=== PATIENT | male | born 1955 | race Caucasian/White ===

== ENCOUNTER 2019-04-14 07:52 | Inpatient (IN) | payer BC, OTHER ==
[2019-04-14 10:18] LABS: Absolute Lymphocytes (CBC) 0.8 K/uL (0.7-4.9); Basophils % 0.4 % (0-1.3); Hematocrit 45.2 % (39.6-49.0); Lymphocytes % 7.4 % (15.3-44.8); MPV 7.8 fL (7.6-11.3); RBC Red Blood Cell Count 5.19 M/uL (4.33-5.43)
[2019-04-14] MEDS ORDERED: NA CHLORIDE 0.9% 1,000 ML ONE (10:18)
[2019-04-14] MEDS ORDERED: PIPER/TAZO/NS 3.375gm 3.375 GM/100 ML BAG ONE (10:18)
[2019-04-14 10:27] LABS: Protime INR 1.11
[2019-04-14] MEDS ORDERED: VANCOMYCIN 1.5 GM in NA CHLORIDE 0.9% 500 ML IVPB ONE (10:30)
[2019-04-14 10:45] LABS: ALT/SGPT 30 U/L (12-78); AST/SGOT 19 U/L (15-37); Albumin 3.5 g/dL (3.4-5.0); Alkaline Phosphatase 134 U/L (45-117); BUN Blood Urea Nitrogen 17 mg/dL (7-18); Bicarbonate 29 mmol/L (21-32); Bilirubin Direct 0.3 mg/dL (0-0.2); Bilirubin Total 1.1 mg/dL (0.2-1.0); Glucose Level 99 mg/dL (74-106); NT PRO-BNP 179 pg/mL (<125); Potassium 3.9 mmol/L (3.5-5.1); Protein, Total 8.1 g/dL (6.4-8.2); Sodium Level 138 mmol/L (136-145)
--- NOTE | 2019-04-14 11:16 | EKG ---
Test Date: 2019-04-14 Test Time: 10:19:08 Application Support Intern: SANDEEP MEASUREMENT RESULTS: Intervals: Rate: 95 OR: 162 QRSD: 90 QT: 368 QTc: 462 [place]: P: 54 OR: 162 QRS: 63 T: 41 INTERPRETIVE STATEMENTS: Normal sinus rhythm Normal ECG No previous ECG available for comparison Electronically Signed On 04-14-19 11:15:50 CABLE OPERATOR by Rajesh Whitlock
--- NOTE | 2019-04-14 11:38 | RAD REPORT ---
EXAM DESCRIPTION: RAD - Chest Single View - 04/14/2019 10:36 am CLINICAL HISTORY: pre op, right toe surgery, diabetes COMPARISON: No comparisons TECHNIQUE: AP portable chest image was obtained 04/14/2019 10:36 am . FINDINGS: Lungs are underinflated but otherwise clear. Body habitus and shallow inspiration accentua te lung markings. Heart and vasculature are normal. No measurable pleural effusion and no pneumothora x. No acute bony abnormality seen. No acute aortic findings suspected. IMPRESSION: No acute cardiopulmonary process.
--- NOTE | 2019-04-14 11:47 | RAD REPORT ---
EXAM DESCRIPTION: RAD - Foot Right 3 View - 04/14/2019 10:45 am CLINICAL HISTORY: toe wound COMPARISON: No comparisons FINDINGS: No acute traumatic or pathologic fracture confirmed. No gross cortical disruption seen. Th ere is questionable area of lucency in the distal phalanx that could reflect early osteomyelitis. Soft tissues of the first toe are swollen. No air or foreign body seen. IP joint of the toe appears i ntact as does the MTP joint. IMPRESSION: Central lucency of the first distal phalanx present potentially osteomyelitis. No edita cortical disruption.
--- NOTE | 2019-04-14 11:59 | ER ---
Nurse's Notes [facility] Name: Vance Alfaro Age: 63 yrs Sex: Male : 1955 Arrival Date: 04/14/2019 Time: 08:01 Bed 20 Private MD: Michael Lee Diagnosis: Osteomyelitis, unspecified-right great toe Presentation: 04/14 08:12 Presenting complaint: Patient states: R toe infection x 4-5 days. Is getting worse. ss Denies fever. Transition of care: patient was not received from another setting of care. Onset of symptoms was April 09, 2019. Risk Assessment: Do you want to hurt yourself or someone else? Patient reports no desire to harm self or others. Initial Sepsis Screen: Does the patient have a suspected source of infection? Yes: Skin breakdown/wound. Initial Sepsis Screen: Does the patient meet any 2 criteria? HR > 90 bpm. Care prior to arrival: None. 08:12 Method Of Arrival: Ambulatory ss 08:12 Acuity: MIKAYLA 3 ss Historical: - Allergies: 08:13 No Known Allergies; ss - PMHx: 08:13 Diabetes - IDDM; Hypertension; Hypothyroidism; ss - PSHx: 08:13 L knee replacement; ss - Immunization history:: Adult Immunizations up to date. - Coronavirus screen:: The patient has NOT traveled to [place], [place], or [place] in the past 14 days. Proceed with normal triage process as indicated. - Social history:: Smoking status: Patient reports use of chewing tobacco. - Ebola Screening: : Patient denies exposure to infectious person Patient denies travel to an Ebola-affected area in the 21 days before illness onset. Screenin:45 Abuse screen: Denies threats or abuse. Nutritional screening: No deficits noted. rb1 Tuberculosis screening: No symptoms or risk factors identified. Fall Risk None identified. Assessment: 09:45 General: Appears in no apparent distress. comfortable, Behavior is calm, cooperative. rb1 Neuro: Level of Consciousness is awake, alert, obeys commands, Oriented to person, place, time, situation. Cardiovascular: Capillary refill < 3 seconds is brisk in bilateral fingers. Respiratory: Airway is patent Respiratory effort is even, unlabored, Respiratory pattern is regular, symmetrical. GI: No signs and/or symptoms were reported involving the gastrointestinal system. : No signs and/or symptoms were reported regarding the genitourinary system. Derm: Skin is pink, warm \T\ dry. 09:45 Pain: Denies pain. rb1 09:45 Derm: infection noted to the right great toe, skin has come of the side of the right rb1 toe. Toe is swollen and red. 10:19 Reassessment: Sent fax for Vancomycin 1.5 grams IVPB. rb1 10:44 Reassessment: Patient appears in no apparent distress at this time. No changes from rb1 previously documented assessment. Family at the bedside. 11:43 Reassessment: Patient appears in no apparent distress at this time. Patient and/or rb1 family updated on plan of care and expected duration. Pain level reassessed. Patient is alert, oriented x 3, equal unlabored respirations, skin warm/dry/pink. 12:42 Reassessment: Patient appears in no apparent distress at this time. No changes from rb1 previously documented assessment. family at the bedside. 13:40 Reassessment: Patient appears in no apparent distress at this time. Patient and/or rb1 family updated on plan of care and expected duration. Pain level reassessed. Patient is alert, oriented x 3, equal unlabored respirations, skin warm/dry/pink. Pt. ambulated to the restroom without difficulty. Family at the bedside. 14:15 Reassessment: Patient appears in no apparent distress at this time. Patient and/or rb1 family updated on plan of care and expected duration. Pain level reassessed. Patient is alert, oriented x 3, equal unlabored respirations, skin warm/dry/pink. Patient denies pain at this time. 15:15 Reassessment: Patient appears in no apparent distress at this time. No changes from rb1 previously documented assessment. Family at the bedside. 16:00 Reassessment: Patient appears in no apparent distress at this time. Patient and/or rb1 family updated on plan of care and expected duration. Pain level reassessed. Patient is alert, oriented x 3, equal unlabored respirations, skin warm/dry/pink. Family remains at the bedside. Patient denies pain at this time. 17:00 Reassessment: Patient appears in no apparent distress at this time. No changes from rb1 previously documented assessment. Vital Signs: 08:13 BP 140 / 87; Pulse 96; Resp 18; Temp 98.9(O); Pulse Ox 99% on R/A; Weight 122.47 kg; Height 6 ft. 3 in. (190.50 cm); Pain 0/10; 11:00 BP 149 / 97; Pulse 94; Resp 16; Pulse Ox 98% on R/A; rb1 12:00 BP 131 / 80; Pulse 91; Resp 12; Pulse Ox 99% on R/A; rb1 13:00 BP 117 / 98; Pulse 98; Resp 18; Pulse Ox 98% on R/A; rb1 14:00 BP 146 / 92; Pulse 95; Resp 20; Pulse Ox 99% ; rb1 15:00 BP 132 / 85; Pulse 87; Resp 17; Pulse Ox 98% on R/A; tw2 16:00 BP 147 / 92; Pulse 88; Resp 22; Pulse Ox 97% on R/A; Pain 0/10; rb1 17:00 BP 144 / 78; Pulse 91; Resp 26; Pulse Ox 99% ; Pain 0/10; rb1 08:13 Body Mass Index 33.75 (122.47 kg, 190.50 cm) ED Course: 08:01 Patient arrived in ED. ag5 08:01 Michael Lee MD is Private Physician. ag5 08:13 Triage completed. ss 08:13 Arm band placed on right wrist. ss 09:41 Sol Le[facility] FNP-C [facility]. snw 09:41 Dada Cook MD is Attending Physician. snw 09:45 Patient has correct armband on for positive identification. Bed in low position. Call rb1 light in reach. Side rails up X 1. panel monitor on. Pulse ox on. NIBP on. 10:05 Initial lab(s) drawn, by me, sent to lab. First set of blood cultures drawn. Inserted em1 saline lock: 22 gauge in right forearm, using aseptic technique. Blood collected. Missed attempt(s): 20 gauge in right forearm. Bleeding controlled, band aid applied, catheter tip intact. 10:35 Second set of blood cultures drawn by me. rb1 10:35 Inserted saline lock: 22 gauge in left antecubital area, using aseptic technique. Blood rb1 collected. 10:37 XRAY Chest (1 view) In Process Unspecified. EDMS 10:45 Wound Culture Sent. rb1 10:46 Foot Right 3 View XRAY In Process Unspecified. EDMS 10:49 EKG done, by cath lab radiological technologist. reviewed by Sol SALTER. at1 10:57 Venecia Perdomo, RN is Primary Nurse. rb1 11:58 Balta Gordon is Hospitalizing Provider. snw 20:00 No provider procedures requiring assistance completed. Patient admitted, IV remains in place. Administered Medications: 10:40 Drug: Zosyn 3.375 grams Route: IVPB; Infused Over: 60 mins; Site: right forearm; rb1 11:43 Follow up: Response: No adverse reaction; IV Status: Completed infusion [facility] 10:40 Drug: NS 0.9% 1000 ml Route: IV; Rate: 125 ml/hr; Site: right forearm; rb1 20:19 Follow up: Response: No adverse reaction; IV Status: Completed infusion 11:10 Drug: vancoMYCIN 1.5 grams Route: IVPB; Rate: calculated rate; Site: left antecubital; rb1 13:22 Follow up: IV Status: Completed infusion rb1 Output: 13:40 Urine: 1ml (Voided); Total: 1ml. rb1 Outcome: 11:59 Decision to Hospitalize by Provider. snw 20:33 Admitted to Tele accompanied by tech, family with patient, via wheelchair, room 423, with chart, Report called to Radha Diaz RN 20:33 Condition: stable 20:33 Instructed on the need for admit. 20:47 Patient left the ED. Signatures: Dispatcher [employer] EDMS Sol Leija FNP-C CORN MILLER-Csnw Hebert Sargent em1 Andreia Smith RN RN Astrid Duenas, automotive quality engineer EKG Tat1 Venecia Perdomo, RN RN rb1 Aubree Del Cid RN RN tw2 Joseph Mclaughlin Andres Mclain ag5 Corrections: (The following items were deleted from the chart) 10:43 09:45 General: Appears in no apparent distress. comfortable, Behavior is calm, rb1 cooperative, Reports fever for off and on for 3-4 months. rb1 10:43 09:45 Pain: Complains of pain in right lower quadrant Pain currently is 8 out of 10 on rb1 a pain scale. Pain began 3-4 months rb1 10:43 09:45 GI: Reports diarrhea, rb1 rb1 10:44 10:35 Second set of blood cultures drawn rb1 rb1 20:34 20:33 Admitted to [facility]
--- NOTE | 2019-04-14 11:59 | EDPHYS ---
Physician Documentation [facility] Name: Vance Alfaro Age: 63 yrs Sex: Male : 1955 Arrival Date: 04/14/2019 Time: 08:01 Bed 20 Private MD: Michael Lee ED Physician Dada Cook HPI: 04/14 11:59 This 63 yrs old Male presents to ER via Ambulatory with complaints of snw Diabetic - Toe Infection. 11:59 Onset: The symptoms/episode began/occurred suddenly, 3 day(s) ago, and became worse and snw became persistent. Associated signs and symptoms: Pertinent positives: redness, swelling, skin peeled off right great toe today, pt states he had a plantar ulceration that has been healing well until a few days ago. The patient has not experienced similar symptoms in the past. It is unknown whether or not the patient has recently seen a physician. supposed to see Endocrinology on the 7th to reassess hypothyroid. Last TSH level was 10.. Historical: - Allergies: 08:13 No Known Allergies; ss - PMHx: 08:13 Diabetes - IDDM; Hypertension; Hypothyroidism; ss - PSHx: 08:13 L knee replacement; ss - Immunization history:: Adult Immunizations up to date. - Coronavirus screen:: The patient has NOT traveled to [place], [place], or [place] in the past 14 days. Proceed with normal triage process as indicated. - Social history:: Smoking status: Patient reports use of chewing tobacco. - Ebola Screening: : Patient denies exposure to infectious person Patient denies travel to an Ebola-affected area in the 21 days before illness onset. ROS: 10:55 Constitutional: Negative for fever, chills, and weight loss, Eyes: Negative for injury, snw pain, redness, and discharge, ENT: Negative for injury, pain, and discharge, Neck: Negative for injury, pain, and swelling, Cardiovascular: Negative for chest pain, palpitations, and edema, Respiratory: Negative for shortness of breath, cough, wheezing, and pleuritic chest pain, Abdomen/GI: Negative for abdominal pain, nausea, vomiting, diarrhea, and constipation, Back: Negative for injury and pain, : Negative for injury, bleeding, discharge, and swelling, MS/Extremity: Negative for injury and deformity, Neuro: Negative for headache, weakness, numbness, tingling, and seizure. 10:55 Skin: Positive for cellulitis, swelling, of the right first toe. Exam: 10:53 Constitutional: This is a well developed, well nourished patient who is awake, alert, snw and in no acute distress. Head/Face: Normocephalic, atraumatic. Eyes: Pupils equal round and reactive to light, extra-ocular motions intact. Lids and lashes normal. Conjunctiva and sclera are non-icteric and not injected. Cornea within normal limits. Periorbital areas with no swelling, redness, or edema. ENT: Nares patent. No nasal discharge, no septal abnormalities noted. Tympanic membranes are normal and external auditory canals are clear. Oropharynx with no redness, swelling, or masses, exudates, or evidence of obstruction, uvula midline. Mucous membranes moist. Neck: Trachea midline, no thyromegaly or masses palpated, and no cervical lymphadenopathy. Supple, full range of motion without nuchal rigidity, or vertebral point tenderness. No Meningismus. Chest/axilla: Normal chest wall appearance and motion. Nontender with no deformity. No lesions are appreciated. Cardiovascular: Regular rate and rhythm with a normal S1 and S2. No gallops, murmurs, or rubs. Normal PMI, no JVD. No pulse deficits. Respiratory: Lungs have equal breath sounds bilaterally, clear to auscultation and percussion. No rales, rhonchi or wheezes noted. No increased work of breathing, no retractions or nasal flaring. Abdomen/GI: Soft, non-tender, with normal bowel sounds. No distension or tympany. No guarding or rebound. No evidence of tenderness throughout. Back: No spinal tenderness. No costovertebral tenderness. Full range of motion. Neuro: Awake and alert, GCS 15, oriented to person, place, time, and situation. Cranial nerves II-XII grossly intact. Motor strength 5/5 in all extremities. Sensory grossly intact. Cerebellar exam normal. Normal gait. Psych: Awake, alert, with orientation to person, place and time. Behavior, mood, and affect are within normal limits. 10:53 Musculoskeletal/extremity: Extremities: grossly normal except: noted in the right great toe: erythema, swelling, ROM: no acute changes, Circulation is intact in all extremities. Sensation intact. 10:53 Skin: Appearance: Color: erythematous, Temperature: warm, swelling, noted on the plantar aspect of right first toe, right first toe and Right first toenail, that are marked. Vital Signs: 08:13 BP 140 / 87; Pulse 96; Resp 18; Temp 98.9(O); Pulse Ox 99% on R/A; Weight 122.47 kg; ss Height 6 ft. 3 in. (190.50 cm); Pain 0/10; 11:00 BP 149 / 97; Pulse 94; Resp 16; Pulse Ox 98% on R/A; rb1 12:00 BP 131 / 80; Pulse 91; Resp 12; Pulse Ox 99% on R/A; rb1 13:00 BP 117 / 98; Pulse 98; Resp 18; Pulse Ox 98% on R/A; rb1 14:00 BP 146 / 92; Pulse 95; Resp 20; Pulse Ox 99% ; rb1 15:00 BP 132 / 85; Pulse 87; Resp 17; Pulse Ox 98% on R/A; tw2 16:00 BP 147 / 92; Pulse 88; Resp 22; Pulse Ox 97% on R/A; Pain 0/10; rb1 17:00 BP 144 / 78; Pulse 91; Resp 26; Pulse Ox 99% ; Pain 0/10; rb1 08:13 Body Mass Index 33.75 (122.47 kg, 190.50 cm) ss MDM: 09:41 Patient medically screened. snw 11:57 Data reviewed: vital signs, nurses notes. Data interpreted: Pulse oximetry: on room air snw is 99 %. Interpretation: normal. Counseling: I had a detailed discussion with the patient and/or guardian regarding: the historical points, exam findings, and any diagnostic results supporting the discharge/admit diagnosis, the presence of at least one elevated blood pressure reading (>120/80) during this emergency department visit, lab results, radiology results, the need for further work-up and treatment in the hospital. Physician consultation: Balta Gordon was called at 11:58, was contacted at 11:58, regarding admission, to the telemetry unit. 04/14 09:48 Order name: Basic Metabolic Panel; Complete Time: 10:46 snw 04/14 09:48 Order name: CBC with Diff; Complete Time: 10:46 snw 04/14 09:48 Order name: LFT's; Complete Time: 10:46 04/14 09:48 Order name: Magnesium; Complete Time: 10:46 04/14 09:48 Order name: NT PRO-BNP; Complete Time: 10:46 04/14 09:48 Order name: PT-INR; Complete Time: 10:46 04/14 08:49 Order name: Foot Right 3 View XRAY; Complete Time: 11:49 04/14 09:48 Order name: XRAY Chest (1 view); Complete Time: 11:44 04/14 09:48 Order name: Blood Culture Adult (2) 04/14 09:48 Order name: Procalcitonin; Complete Time: 11:05 04/14 09:48 Order name: TSH; Complete Time: 10:46 04/14 09:48 Order name: Lactate; Complete Time: 10:46 04/14 09:48 Order name: Wound Culture 04/14 09:48 Order name: EKG; Complete Time: 09:49 04/14 09:48 Order name: Cardiac monitoring; Complete Time: 10:45 04/14 09:48 Order name: EKG - Nurse/Tech; Complete Time: 10:45 04/14 09:48 Order name: IV Saline Lock; Complete Time: 10:14 04/14 09:48 Order name: Labs collected and sent; Complete Time: 10:14 04/14 09:48 Order name: O2 Per Protocol; Complete Time: 10:45 04/14 09:48 Order name: O2 Sat Monitoring; Complete Time: 10:45 snw Administered Medications: 10:40 Drug: Zosyn 3.375 grams Route: IVPB; Infused Over: 60 mins; Site: right forearm; rb1 11:43 Follow up: Response: No adverse reaction; IV Status: Completed infusion rb1 10:40 Drug: NS 0.9% 1000 ml Route: IV; Rate: 125 ml/hr; Site: right forearm; rb1 20:19 Follow up: Response: No adverse reaction; IV Status: Completed infusion wh 11:10 Drug: vancoMYCIN 1.5 grams Route: IVPB; Rate: calculated rate; Site: left antecubital; rb1 13:22 Follow up: IV Status: Completed infusion rb1 Disposition: 04/15 07:02 Co-signature as Attending Physician, Dada Cook MD. rn Disposition: 04/14/19 11:59 Hospitalization ordered by Balta Gordon for Inpatient Admission. Preliminary diagnosis is Osteomyelitis, unspecified - right great toe. - Bed requested for Telemetry/MedSurg (Inpatient). - Status is Inpatient Admission. - Condition is Stable. - Problem is new. - Symptoms are unchanged. UTI on Admission? Yes Signatures: Dispatcher [employer] EDMS Sol Leija, MAXIMILIANO-C SWITCHBOARD MANAGER-Csnw Dada Cook MD MD rn Andreia Smith RN RN ss Venecia Perdomo RN RN [facility] Lissette, Winsy Mary Resendiz Autumn ar5 Corrections: (The following items were deleted from the chart) 04/14 15:27 11:59 Hospitalization Ordered by Balta Gordon for Inpatient Admission. Preliminary eb diagnosis is Osteomyelitis, unspecified - right great toe. Bed requested for Telemetry/MedSurg (Inpatient). Status is Inpatient Admission. Condition is Stable. Problem is new. Symptoms are unchanged. UTI on Admission? No. snw 19:07 08:49 Accucheck ordered. snw rb1 20:08 15:27 04/14/2019 11:59 Hospitalization Ordered by Balta Gordon for Inpatient [facility] Admission. Preliminary diagnosis is Osteomyelitis, unspecified - right great toe. Bed requested for [facility] ER HOLD. Status is Inpatient Admission. Condition is Stable. Problem is new. Symptoms are unchanged. UTI on Admission? No. eb 20:47 20:08 04/14/2019 11:59 Hospitalization Ordered by Balta Gordon for Inpatient Admission. Preliminary diagnosis is Osteomyelitis, unspecified - right great toe. Bed requested for Telemetry/MedSurg (Inpatient). Status is Inpatient Admission. Condition is Stable. Problem is new. Symptoms are unchanged. UTI on Admission? No. ar5
[2019-04-14] MEDS ORDERED: HYDROCODONE/APAP 5/325 MG TAB PO PRN (15:29)
--- NOTE | 2019-04-14 17:22 | P.HP ---
Certification for Inpatient Patient admitted to: Inpatient With expected LOS: >2 Midnights Practitioner: I am a practitioner with admitting privileges, knowledge of patient current condition, hospital course, and medical plan of care. Services: Services provided to patient in accordance with Admission requirements found in Title 42 Section 412.3 of the Code of Federal Regulations Patient History Date of Service: 04/14/19 Reason for admission: Infected right big toe wound History of Present Illness: 63-year-old morbidly obese gentleman with a history of diabetes mellitus type 2 and hypertension presented to the emergency department due to suspected right big toe infection. Patient reports he has chronic ulcer on the plantar aspect of the right big toe. He noted increased swelling of the big toe and more discharge from the ulcer. He was concerned about infection and therefore presented to the emergency department for evaluation. X-ray of the foot done in the emergency department suggested presence of osteomyelitis. Patient states his blood sugar has been under good control over the last couple of weeks with Tresiba and pre meal insulin. Patient is admitted for further management. Allergies No Known Allergies Allergy (Verified 04/14/19 22:16) Home Medications: Insulin Aspart (Niacinamide) [Fiasp 100 Unit/ml Flextouch] 8 units SQ TIDWM Levothyroxine [Synthroid*] 50 mcg PO [id number] 04/14/19 lisinopriL [Lisinopril] 1 tab PO DAILY 04/14/19 Insulin Degludec [Tresiba] 25 unit SQ DAILY 04/15/19 Amlodipine [Norvasc*] 10 mg PO DAILY #30 tab 04/20/19 levoFLOXacin [Levaquin*] 750 mg IV DAILY #42 bag 04/20/19 - Past Medical/Surgical History Diabetic: Yes -: DM type 2 -: Hypertension - Family History Father -: Diabetes Mother History Unknown: Yes -: Cancer Notes: colon Brother History Unknown: Yes -: Diabetes - Social History Smoking Status: Never smoker Alcohol use: Yes CD- Drugs: No Place of Residence: Home Review of Systems Other: General: No fever, no malaise, no unintentional weight loss. Eyes: No eye discharge, Respiratory: No cough, no shortness of breath. CVS: No chest pain, no palpitation, no lightheadedness. GI: No abdominal pain, no nausea no vomit, no constipation, no diarrhea. Genitourinary: No dysuria, no urinary frequency, no incontinence, no hematuria. Musculoskeletal: No joint pains, or joint swelling, no gait instability. Neurology: No headache, no asymmetric, weakness, no problem with swallowing. Except as documented, all other systems reviewed and negative. Physical Examination - Physical Exam General: Alert, In no apparent distress, Oriented x3, Obese HEENT: PERRLA, Mucous membr. moist/pink, Sclerae nonicteric Neck: Supple, JVD not distended Respiratory: Clear to auscultation bilaterally, Normal air movement Cardiovascular: No edema, Regular rate/rhythm, Normal S1 S2 Capillary refill: <2 Seconds Gastrointestinal: Normal bowel sounds, Soft and benign, No tenderness Musculoskeletal: Other (Right big is erythematosus and swollen. Chronic ulcer at the plantar aspect of the right big toe discharging serous fluid.) Neurological: Normal speech, Normal strength at 5/5 x4 extr - Studies Laboratory Data (last 24 hrs) 04/14/19 10:05: PT 13.0 H, INR 1.11 04/14/19 10:05: WBC 11.0 H, Hgb 15.5, Hct 45.2, Plt Count 348 04/14/19 10:05: Sodium 138, Potassium 3.9, BUN 17, Creatinine 0.83, Glucose 99, Magnesium 2.0, Total Bilirubin 1.1 H, AST 19, ALT 30, Alkaline Phosphatase 134 H Assessment and Plan - Problems (Diagnosis) (1) Diabetic foot ulcer Status: Acute Qualifiers: Diabetic foot ulcer location: toe Diabetes mellitus type: type 2 (2) Osteomyelitis Status: Acute (3) Hypertension Status: Acute (4) DM type 2 (diabetes mellitus, type 2) Status: Acute - Plan Admit to the general medical floor. Aggressive antibiotic therapy with IV vancomycin, cefepime and clindamycin. Consult general surgery Patient will need deep tissue wound culture Follow blood cultures. Long-acting insulin and insulin sliding scale for glucose management. Patient will need PICC line placement for prolonged IV antibiotic therapy. - Advance Directives Does patient have a Living Will: No Does patient have a Durable POA for Healthcare: No
[2019-04-14] MEDS ORDERED: INFLUENZA VACCINE (for 3y+) 0.5 ML DOSE IMVAC ONE (18:00)
[2019-04-14] MEDS ORDERED: ACETAMINOPHEN 500 MG TAB PO PRN (19:15)
[2019-04-14] MEDS ORDERED: D50W 25 GM/50 ML SYRINGE/VIAL IV PRN ×2 (19:15)
[2019-04-14] MEDS ORDERED: GLUCAGON 1 MG/VIAL IM PRN ×2 (19:15)
[2019-04-14] MEDS ORDERED: ONDANSETRON 4 MG/2 ML VIAL IV PRN (19:15)
[2019-04-14] MEDS: NA CHLORIDE 0.9% 1,000 ML IV SCH (19:15)
[2019-04-14] MEDS: CLINDAMYCIN INJ 600 MG in NA CHLORIDE 0.9% 50 ML IV SCH ×2 (19:15→23:00)
[2019-04-14] MEDS ORDERED: CLINDAMYCIN 600MG/D5W 600 MG/50 ML BAG IV ONE (20:06)
[2019-04-14] MEDS ORDERED: CEFEPIME 1 GM/VIAL IV SCH (21:00)
[2019-04-14] MEDS: INSULIN -REGULAR HUMAN 50 UNIT/0.5 ML ML SQ SCH (21:00)
[2019-04-14] MEDS: VANCOMYCIN 2 GM in NA CHLORIDE 0.9% 500 ML IVPB SCH (21:00)
[2019-04-14 21:21] VITALS: BMI 34.4
[2019-04-15] MEDS ORDERED: VANCOMYCIN 1 GM/VIAL ONE (00:13)
[2019-04-15] MEDS ORDERED: NA CHLORIDE 0.9% 500 ML ONE (00:13)
[2019-04-15 04:14] LABS: Absolute Lymphocytes (CBC) 1.4 K/uL (0.7-4.9); Basophils % 0.6 % (0-1.3); Hematocrit 37.9 % (39.6-49.0); Lymphocytes % 21.1 % (15.3-44.8); MPV 7.9 fL (7.6-11.3); RBC Red Blood Cell Count 4.28 M/uL (4.33-5.43)
[2019-04-15 04:27] LABS: BUN Blood Urea Nitrogen 13 mg/dL (7-18); Bicarbonate 28 mmol/L (21-32); Glucose Level 167 mg/dL (74-106); Phosphorus 3.1 mg/dL (2.5-4.9); Potassium 3.6 mmol/L (3.5-5.1); Sodium Level 142 mmol/L (136-145)
[2019-04-15 05:10] LABS: Blood Morphology Comment NOT SEEN (NOT SEEN); Platelet Estimate ADEQ
[2019-04-15] MEDS ORDERED: POTASSIUM CL SA 10 MEQ TAB PO ONE (06:23)
[2019-04-15] MEDS: ENOXAPARIN 40 MG/0.4 ML SQ SCH (08:15)
[2019-04-15] MEDS: INSULIN GLARGINE 100 UNITS/ML SQ SCH (08:16)
[2019-04-15] MEDS: INSULIN -REGULAR HUMAN 50 UNIT/0.5 ML ML SQ SCH ×4 (08:17→21:06)
[2019-04-15] MEDS: CEFEPIME/SWI 1gm 10 ML IV SCH ×2 (08:58→21:06)
[2019-04-15] MEDS: CLINDAMYCIN INJ 600 MG in NA CHLORIDE 0.9% 50 ML IV SCH ×2 (08:58→16:55)
[2019-04-15] MEDS: VANCOMYCIN 2 GM in NA CHLORIDE 0.9% 500 ML IVPB SCH ×2 (09:43→21:07)
[2019-04-15 11:27] LABS: Urine Appearance CLEAR; Urine Blood NEGATIVE (NEG); Urine Color DK YELLOW; Urine Glucose 1+ (NEG); Urine Protein TRACE (NEG); Urine Specific Gravity >=1.030 (1.005-1.030)
[2019-04-15 11:36] LABS: Urine Microscopic Reflex ORDER UMIC
[2019-04-15] MEDS ORDERED: propofoL 200 MG/20 ML VIAL IV ONE (12:14)
[2019-04-15] MEDS ORDERED: FENTANYL CITR 100 MCG/2 ML ONE (12:14)
[2019-04-15 12:34] LABS: Urine Bacteria <20 /HPF (NONE SEEN); Urine Bilirubin 1+/R (NEG); Urine Culture Reflex Order REFLEXED; Urine RBC <5 /HPF (NONE SEEN)
--- NOTE | 2019-04-15 12:52 | P.PN ---
Subjective Date of Service: 04/15/19 Chief Complaint: Infected right big toe wound No new changes. Blood pressure readings noted to be high. Patient has been afebrile. Blood sugar readings are within good range. No change in wound appearance. Wound has a lot of serous discharge. Physical Examination - Vital Signs Temperature: 97.3 F Blood Pressure: 189/97 Pulse: 84 Respirations: 16 Pulse Ox (%): 99 - Physical Exam General: Alert, In no apparent distress, Oriented x3 HEENT: Mucous membr. moist/pink, Sclerae nonicteric Neck: Supple, JVD not distended Respiratory: Clear to auscultation bilaterally, Normal air movement Cardiovascular: No edema, Regular rate/rhythm, Normal S1 S2 Gastrointestinal: Normal bowel sounds, Soft and benign, Non-distended, No tenderness Musculoskeletal: Other (right big toe plantar ulcer, whole toe is swollen and erythematous.) Neurological: Normal speech, Normal strength at 5/5 x4 extr Assessment And Plan - Current Problems (Diagnosis) (1) Diabetic foot ulcer Current Visit: Yes Status: Acute Qualifiers: Diabetic foot ulcer location: toe Diabetes mellitus type: type 2 (2) Osteomyelitis Current Visit: Yes Status: Acute (3) Hypertension Current Visit: Yes Status: Acute (4) DM type 2 (diabetes mellitus, type 2) Current Visit: Yes Status: Acute - Plan Continue current antibiotics. Clindamycin for 48 hours. Patient is planned for debridement and deep tissue wound culture today. General surgery input appreciated. Place PICC line for prolonged IV antibiotics. Local wound care. Follow blood cultures and wound culture Lantus insulin and insulin sliding scale for glucose management. Continue home antihypertensives. Hydralazine p.r.n. for BP spikes.
[2019-04-15] MEDS ORDERED: EPHEDRINE SULF 50 MG/ML VIAL ONE (12:53)
--- NOTE | 2019-04-15 13:07 | P.OP ---
Preoperative diagnosis: R First Toe Abscess Postoperative diagnosis: same Primary procedure: I and D and Debridement Right First Toe Abscess Anesthesia: General Estimated blood loss: min Specimen: pus Findings: as above Complications: None Transferred to: Recovery Room Condition: Good
[2019-04-15] MEDS ORDERED: HYDROCODONE/APAP 7.5/325 MG TAB PO PRN (13:29)
[2019-04-15] MEDS: NA CHLORIDE 0.9% 1,000 ML IV SCH (14:12)
--- NOTE | 2019-04-15 14:53 | PREOPCON ---
Date of Consultation: 04/15/2019 Reason For Consultation: Infection of right great toe. History Of Present Illness: The patient is a 63-year-old gentleman with morbid obesity, type 2 diabe mariana, hypertension, presented to the emergency room with increasing redness, swelling, oozing, fever i n the area with an ulcer on the plantar aspect of the right great toe. Workup reveals diabetic foot infection in that toe. He is admitted. X-ray was done, shows osteo. He had states that this starte d approximately 3 months ago. He saw some doctors and was treated with oral antibiotics, however, di d not work and therefore, he came to the hospital and was admitted for IV antibiotics, and I was cons ulted. He is awake and alert. No sore throat, runny nose, cough, headaches, or dizziness. No chest pain. No systemic fever or chills at this time. Review of Systems: Otherwise, unremarkable. Past Medical History: Type 2 diabetes and hypertension. Allergies: NONE. Social History: Patient does not smoke. Drinks occasionally. Family History: Noncontributory. Past Surgical History: Left knee replacement. Physical Examination: Vital Signs: Currently stable except for blood pressure that is slightly high at 180/95, and he is a febrile. General: He is awake, alert, oriented x3. Head And Neck: Cranial nerves 2 through 12 are grossly within normal limits. No neck masses. No JV D. Throat clear. Neck is supple. Chest: Clear. Heart: S1 and S2. Abdomen: Soft. Extremities: Neurovascularly intact. 2+ pulses dorsalis pedis and posterior tibial, both sides equa l. Right great toe is red, erythematous, warm, edematous, some fluctuance on the medial and the plan tar aspect, minimal oozing of fluid. Laboratory Data: White count on admission was 11,000, with a left shift. INR is 1.11. Procalcitoni n was 0.13. Lactic acid was 1.4. Imaging: Foot x-rays reviewed, shows central lucency in the first distal phalanx present, potentiall y osteo. No edita cortical disruption. Assessment: Right foot first toe diabetic infection, possible osteo. Recommendations: IV antibiotics. N.p.o. to the OR for incision, drainage, and debridement of infect ed right great toe. Patient understands the risks, benefits, and alternatives and agrees to procedur reny AVILES/TALI Voice ID: [id number] Report ID: [id number]
[2019-04-15] MEDS ORDERED: JUVEN PACKET PO SCH (21:00)
--- NOTE | 2019-04-15 23:20 | OP ---
Date of Procedure: 04/15/2019 Surgeon: Wayne Ortiz MD Preoperative Diagnosis: Right first toe abscess. Postoperative Diagnosis: Right first toe abscess. Procedure: Incision and drainage of a right first toe abscess. Estimated Blood Loss: Minimal. Specimens: Pus. Findings: As above. Anesthesia: General. Complications: None. Disposition: Patient tolerated the procedure, was in stable condition and taken to Recovery in good general condition. Procedure In Detail: Patient was brought to the OR and placed in supine position. General anesthesi a begun. Patient was prepped and draped in usual sterile fashion. Marcaine 0.5% was infiltrated loc ally. Then the toe was examined carefully. There was an ulcer on the bottom of the toe which was ex plored. Partial thickness of the skin was done around the edges of the wound. There was no abscess there, but on the dorsum of the toe, proximal to the nail bed, there was fluctuance and I opened this with a 15 blade, approximately a 3 cm incision. There was pus, under pressure which was evacuated. Loculations broken up. Necrotic tissue debrided. Wound irrigated. Bleeding controlled with cauter y. There was no other evidence of any abscess that needed to be drained. Subsequently wet-to-dry no rmal saline dressing change applied. Patient was awakened and taken to Recovery in good general condition . /MODL Voice ID: [id number] Report ID: [id number]
[2019-04-16] MEDS: CLINDAMYCIN INJ 600 MG in NA CHLORIDE 0.9% 50 ML IV SCH ×2 (00:55→08:29)
[2019-04-16] MEDS: HYDRALAZINE HCL 20 MG/ML VIAL IV PRN ×2 (04:05→12:02)
[2019-04-16 06:05] LABS: Absolute Lymphocytes (CBC) 1.1 K/uL (0.7-4.9); Basophils % 0.7 % (0-1.3); Hematocrit 37.4 % (39.6-49.0); Lymphocytes % 20.6 % (15.3-44.8); MPV 7.7 fL (7.6-11.3); RBC Red Blood Cell Count 4.31 M/uL (4.33-5.43)
[2019-04-16 06:21] LABS: BUN Blood Urea Nitrogen 12 mg/dL (7-18); Bicarbonate 25 mmol/L (21-32); Glucose Level 205 mg/dL (74-106); Potassium 3.8 mmol/L (3.5-5.1); Sodium Level 142 mmol/L (136-145)
[2019-04-16] MEDS: LEVOTHYROXINE SOD 0.05 MG TABLET PO SCH (06:23)
[2019-04-16] MEDS ORDERED: POTASSIUM 25 MEQ EFFERV TAB PO ONE (08:00)
[2019-04-16] MEDS: INSULIN -REGULAR HUMAN 50 UNIT/0.5 ML ML SQ SCH ×4 (08:26→21:00)
[2019-04-16] MEDS: INSULIN GLARGINE 100 UNITS/ML SQ SCH (08:27)
[2019-04-16] MEDS: CEFEPIME/SWI 1gm 10 ML IV SCH ×2 (08:28→22:13)
[2019-04-16] MEDS: lisinopriL 20 MG TAB PO SCH (08:28)
[2019-04-16] MEDS: ENOXAPARIN 40 MG/0.4 ML SQ SCH (08:28)
[2019-04-16] MEDS: VANCOMYCIN 2 GM in NA CHLORIDE 0.9% 500 ML IVPB SCH ×2 (09:00→22:15)
[2019-04-16] MEDS: NA CHLORIDE 0.9% 1,000 ML IV SCH (12:02)
--- NOTE | 2019-04-16 13:02 | P.PN ---
Subjective Date of Service: 04/16/19 Chief Complaint: Infected right big toe wound Patient has no complain. Status post incision and debridement of wound. Blood pressure readings remain high. Blood sugar readings are within good range. No change in wound appearance. Physical Examination - Vital Signs Temperature: 97.7 F Blood Pressure: 161/74 Pulse: 79 Respirations: 18 Pulse Ox (%): 98 - Physical Exam General: Alert, In no apparent distress, Oriented x3 HEENT: Mucous membr. moist/pink Neck: Supple Respiratory: Clear to auscultation bilaterally, Normal air movement Cardiovascular: No edema, Regular rate/rhythm, Normal S1 S2 Gastrointestinal: Normal bowel sounds, Soft and benign, No tenderness Integumentary: Other (Dressed right big toe wound.) Neurological: Normal strength at 5/5 x4 extr - Studies Microbiology Data (last 24 hrs): 04/14/19 10:35 Wound - Right Toe Gram Stain - Final 04/14/19 10:35 Wound - Right Toe Culture & Sensitivity - Final Providencia Rettgeri Staph Aureus Assessment And Plan - Current Problems (Diagnosis) (1) Diabetic foot ulcer Current Visit: Yes Status: Acute Qualifiers: Diabetic foot ulcer location: toe Diabetes mellitus type: type 2 (2) Osteomyelitis Current Visit: Yes Status: Acute (3) Hypertension Current Visit: Yes Status: Acute (4) DM type 2 (diabetes mellitus, type 2) Current Visit: Yes Status: Acute - Plan Continue current antibiotics. Discontinue clindamycin. Follow deep tissue culture result. Blood cultures: No growth. PICC line placed for outpatient IV antibiotics. Local wound care. Follow blood cultures and wound culture Lantus insulin and insulin sliding scale for glucose management. Continue home antihypertensives. Add amlodipine Hydralazine p.r.n. for BP spikes.
[2019-04-16] MEDS: AMLODIPINE 5 MG TAB PO SCH (13:57)
--- NOTE | 2019-04-16 17:04 | PN ---
Date of Progress Note: 04/16/2019 Subjective: Patient is awake, alert. No complaints. Objective: VITAL SIGNS: Stable. Afebrile. His cultures done from show procidentia and Staph aureus sensitive to Bactrim, Levaquin, and vancomycin. Patient is currently on vancomycin, but OR cultures are still pending. His wound was examined. Ther e is decreasing edema and erythema. There is no purulence. Assessment: Status post incision and drainage and debridement of right great toe abscess. Recommendations: Continue IV antibiotics as ordered. Check OR cultures and adjust antibiotics accor dingly and patient will need 6 weeks IV antibiotics for the osteo and we will follow up with me in [facility]. Plan of care discussed with Dr. Gordon. STEFAN/TALI Voice ID: [id number] Report ID: [id number]
[2019-04-17] MEDS: LEVOTHYROXINE SOD 0.05 MG TABLET PO SCH (06:29)
[2019-04-17 07:30] LABS: Absolute Lymphocytes (CBC) 1.3 K/uL (0.7-4.9); Basophils % 0.7 % (0-1.3); Hematocrit 40.6 % (39.6-49.0); Lymphocytes % 20.2 % (15.3-44.8); MPV 8.1 fL (7.6-11.3); RBC Red Blood Cell Count 4.61 M/uL (4.33-5.43)
[2019-04-17] MEDS: INSULIN -REGULAR HUMAN 50 UNIT/0.5 ML ML SQ SCH ×4 (07:30→21:06)
[2019-04-17 08:02] LABS: BUN Blood Urea Nitrogen 8 mg/dL (7-18); Bicarbonate 25 mmol/L (21-32); Glucose Level 140 mg/dL (74-106); Potassium 3.5 mmol/L (3.5-5.1); Sodium Level 142 mmol/L (136-145)
[2019-04-17] MEDS: AMLODIPINE 5 MG TAB PO SCH (08:31)
[2019-04-17] MEDS: lisinopriL 20 MG TAB PO SCH (08:31)
[2019-04-17] MEDS: VANCOMYCIN 2 GM in NA CHLORIDE 0.9% 500 ML IVPB SCH (08:32)
[2019-04-17] MEDS: INSULIN GLARGINE 100 UNITS/ML SQ SCH (08:32)
[2019-04-17] MEDS: ENOXAPARIN 40 MG/0.4 ML SQ SCH (08:32)
[2019-04-17] MEDS: CEFEPIME/SWI 1gm 10 ML IV SCH (08:33)
[2019-04-17] MEDS: NA CHLORIDE 0.9% 1,000 ML IV SCH (08:42)
--- NOTE | 2019-04-17 12:25 | P.PN ---
Subjective Date of Service: 04/17/19 Chief Complaint: Infected right big toe wound Patient has no complain. Status post incision and debridement of wound. Blood pressure readings remain high. Status post I&D and debridement of right great toe wound. Physical Examination - Vital Signs Temperature: 97.8 F Blood Pressure: 175/94 Pulse: 84 Respirations: 15 Pulse Ox (%): 95 - Physical Exam General: Alert, In no apparent distress, Oriented x3 HEENT: Mucous membr. moist/pink, Sclerae nonicteric Neck: JVD not distended Respiratory: Clear to auscultation bilaterally, Normal air movement Cardiovascular: Regular rate/rhythm, Normal S1 S2 Gastrointestinal: Normal bowel sounds, Soft and benign, No tenderness - Studies Microbiology Data (last 24 hrs): 04/14/19 10:35 Wound - Right Toe Gram Stain - Final 04/14/19 10:35 Wound - Right Toe Culture & Sensitivity - Final Providencia Rettgeri Staph Aureus Assessment And Plan - Current Problems (Diagnosis) (1) Diabetic foot ulcer Current Visit: Yes Status: Acute Qualifiers: Diabetic foot ulcer location: toe Diabetes mellitus type: type 2 (2) Osteomyelitis Current Visit: Yes Status: Acute (3) Hypertension Current Visit: Yes Status: Acute (4) DM type 2 (diabetes mellitus, type 2) Current Visit: Yes Status: Acute - Plan Deep tissue Wound culture is growing MSSA. Blood cultures: No growth. PICC line placed for outpatient IV antibiotics. Scale down antibiotics to vancomycin Local wound care. Lantus insulin and insulin sliding scale for glucose management. Continue home antihypertensives. Hydralazine p.r.n. for BP spikes. Increased amlodipine to 10 mg daily.
[2019-04-17] MEDS: HYDRALAZINE HCL 20 MG/ML VIAL IV PRN ×2 (12:26→16:51)
[2019-04-17] MEDS ORDERED: POTASSIUM CL SA 10 MEQ TAB PO ONE (14:00)
--- NOTE | 2019-04-17 15:31 | PN ---
Patient is awake, alert, no complaints. Vital signs stable, afebrile. White count is 6.6. There is no left shift. OR cultures showing Staph aureus sensitive to the medications he is on. Examination of the wound reveals no purulence, decreasing in redness, decreasing edema, some blistering of the s kin which was debrided at the bedside. Assessment: Status post incision and drainage and debridement of right great toe abscess. Recommendations: Continue IV antibiotics and wound care is ordered, discharge planning. /MODL Voice ID: [id number] Report ID: [id number]
[2019-04-17] MEDS: VANCOMYCIN 2.25 GM in NA CHLORIDE 0.9% 500 ML IVPB SCH (21:06)
[2019-04-18] MEDS: NA CHLORIDE 0.9% 1,000 ML IV SCH ×2 (03:15→08:19)
[2019-04-18] MEDS: LEVOTHYROXINE SOD 0.05 MG TABLET PO SCH (05:16)
[2019-04-18] MEDS: lisinopriL 20 MG TAB PO SCH (08:18)
[2019-04-18] MEDS: AMLODIPINE 10 MG TAB PO SCH (08:18)
[2019-04-18] MEDS: ENOXAPARIN 40 MG/0.4 ML SQ SCH (08:18)
[2019-04-18] MEDS: INSULIN -REGULAR HUMAN 50 UNIT/0.5 ML ML SQ SCH ×4 (08:20→21:41)
[2019-04-18] MEDS: VANCOMYCIN 2.25 GM in NA CHLORIDE 0.9% 500 ML IVPB SCH ×2 (08:20→21:42)
[2019-04-18] MEDS: INSULIN GLARGINE 100 UNITS/ML SQ SCH (08:20)
[2019-04-18] MEDS: Levofloxacin 750mg IV 750 MG/150 ML BAG IV SCH (11:28)
[2019-04-18] MEDS: HYDRALAZINE HCL 20 MG/ML VIAL IV PRN (11:28)
--- NOTE | 2019-04-18 13:34 | RAD REPORT ---
EXAM DESCRIPTION: XR Chest, 1 View CLINICAL HISTORY: The patient is 63 years old and is Male; S/P PICC insertion TECHNIQUE: Frontal view of the chest. COMPARISON: No relevant prior studies available. FINDINGS: LUNGS: Unremarkable. No consolidation. PLEURAL SPACE: Unremarkable. No pneumothorax. HEART: The cardiac silhouette is minimally prominent. MEDIASTINUM: Unremarkable. BONES/JOINTS: There are degenerative changes of the bones. VASCULATURE: Prominence of central vasculature is noted. TUBES, LINES AND DEVICES: A right upper extremity PICC is present with the tip in the SVC. IMPRESSION: A right upper extremity PICC is present with the tip in the SVC. Electronically signed by: Hannah Gay MD 04/16/2019 5:25 AM FREIGHT [employer]ER Due to temporary technical issues with the PACS/Fluency reporting system, reports are being signed by the in house radiologist as a courtesy to ensure prompt reporting. The interpreting radiologist is f ully responsible for the content of the report.
--- NOTE | 2019-04-18 14:53 | PN ---
Date of Progress Note: 04/18/2019 Subjective: Patient is awake, alert. No complaints. Objective: Vital Signs: Stable, afebrile. Diagnostic Studies: Cultures reviewed and growing out Staphylococcus aureus and Providencia rettgeri sensitive to vancomycin which he is on as well as Levaquin. Examination of the wound reveals decrea se in erythema. There is some wrinkling of the skin indicating decrease in swelling. There is no wa rmth. The wound has minimal purulence in it. No active purulence. Assessment: Status post incision and drainage and debridement of right big toe abscess. Recommendations: Continue Levaquin and vancomycin as ordered and wound care as ordered. Follow up i n the [facility] and my clinic upon discharge. /MODL Voice ID: [id number] Report ID: [id number]
--- NOTE | 2019-04-18 19:08 | P.PN ---
Subjective Date of Service: 04/18/19 Chief Complaint: Infected right big toe wound Patient has no complain. Status post I&D and debridement of right great toe wound. Patient denies any pain. Physical Examination - Vital Signs Temperature: 97.3 F Blood Pressure: 148/75 Pulse: 87 Respirations: 18 Pulse Ox (%): 94 - Physical Exam General: Alert, In no apparent distress HEENT: Mucous membr. moist/pink Neck: Supple Respiratory: Clear to auscultation bilaterally, Normal air movement Cardiovascular: No edema, Regular rate/rhythm, Normal S1 S2 Gastrointestinal: Normal bowel sounds, Soft and benign, No tenderness Musculoskeletal: Other (Right great toe swelling and erythema significantly improved. I&D wound looks clean with no discharge.) Assessment And Plan - Current Problems (Diagnosis) (1) Diabetic foot ulcer Current Visit: Yes Status: Acute Qualifiers: Diabetic foot ulcer location: toe Diabetes mellitus type: type 2 (2) Osteomyelitis Current Visit: Yes Status: Acute (3) Hypertension Current Visit: Yes Status: Acute (4) DM type 2 (diabetes mellitus, type 2) Current Visit: Yes Status: Acute - Plan Deep tissue Wound culture is growing MSSA. Blood cultures: No growth. PICC line placed for outpatient IV antibiotics. Case discussed with Dr. Alexandre. Patient plan for 6 weeks of IV Levaquin Local wound care. Blood sugar readings are within good range. Continue current Lantus insulin dose and insulin sliding scale.. Continue home antihypertensives. Hydralazine p.r.n. for BP spikes. Added amlodipine to 10 mg daily. The patient is waiting for insurance authorization for outpatient IV antibiotics.
--- NOTE | 2019-04-18 19:30 | CON ---
History Of Present Illness: This is a 63-year-old male. I was consulted for osteomyelitis and diabe tic foot ulcer and cellulitis of the foot, status post debridement. Patient has longstanding history of diabetes mellitus with hemoglobin A1c recently was 14, has come down to 10 in last 3 months. Brianne wolff came in with right foot ulceration to the big toe with increased swelling and erythematous benítez es. Patient also had diabetic neuropathy with decreased sensation. Past Medical History: Diabetes mellitus, hypertension. Social History: Chews tobacco. Social alcohol use. Family History: Diabetes mellitus. Medications: Patient is currently on IV Levaquin and vancomycin. See MAR for other medications. Allergies: NO KNOWN DRUG ALLERGIES. Review of Systems: A 10-point review was performed. Physical Examination: General: This is a 63-year-old male, lying in bed, by the bedside. Vital Signs: Temperature , pulse 83, respirations 18, blood pressure 170/87. HEENT: Unremarkable. Neck: Supple. Lungs: Basal crackles. Heart: S1, S2. Regular. Abdomen: Soft, nontender. Bowel sounds present. Extremities: Right foot edema 2+. Diabetic foot ulcer in surgical dressing. Laboratory Data: Micro data is growing Staph aureus and providencia. Patient is currently being treated with Levaquin and vancomycin. Assessment And Plan: Right foot osteomyelitis and diabetic foot ulcer with diabetic neuropathy in a 63-year-old male, currently being treated with vancomycin and Levaquin. Recommend to do 6 weeks tota l course IV. Keep leg elevated as much as possible. Continue current treatment of wound as per surg ical team. We will follow the patient as needed. Thank you Dr. Gordon for consult. NF/JOSE MARIAL Voice ID: [id number] Report ID: [id number]
[2019-04-18] MEDS: DOCUSATE NA 100 MG CAP PO SCH (21:41)
[2019-04-19 04:38] LABS: Absolute Lymphocytes (CBC) 1.5 K/uL (0.7-4.9); Basophils % 0.8 % (0-1.3); Hematocrit 37.7 % (39.6-49.0); Lymphocytes % 26.6 % (15.3-44.8); MPV 7.3 fL (7.6-11.3)
[2019-04-19 04:47] LABS: BUN Blood Urea Nitrogen 8 mg/dL (7-18); Bicarbonate 28 mmol/L (21-32); Glucose Level 169 mg/dL (74-106); Potassium 3.5 mmol/L (3.5-5.1); Sodium Level 142 mmol/L (136-145)
[2019-04-19] MEDS: LEVOTHYROXINE SOD 0.05 MG TABLET PO SCH (06:12)
[2019-04-19] MEDS: INSULIN -REGULAR HUMAN 50 UNIT/0.5 ML ML SQ SCH ×4 (07:30→20:51)
[2019-04-19] MEDS ORDERED: POTASSIUM CL SA 10 MEQ TAB PO ONE (09:00)
[2019-04-19] MEDS: INSULIN GLARGINE 100 UNITS/ML SQ SCH (09:01)
[2019-04-19] MEDS: ENOXAPARIN 40 MG/0.4 ML SQ SCH (09:03)
[2019-04-19] MEDS: lisinopriL 20 MG TAB PO SCH (09:04)
[2019-04-19] MEDS: AMLODIPINE 10 MG TAB PO SCH (09:04)
[2019-04-19] MEDS: DOCUSATE NA 100 MG CAP PO SCH ×2 (09:05→20:51)
[2019-04-19] MEDS: Levofloxacin 750mg IV 750 MG/150 ML BAG IV SCH (09:06)
[2019-04-19] MEDS: VANCOMYCIN 2.25 GM in NA CHLORIDE 0.9% 500 ML IVPB SCH ×2 (10:34→20:52)
[2019-04-19] MEDS: NA CHLORIDE 0.9% 1,000 ML IV SCH ×2 (10:42→19:15)
--- NOTE | 2019-04-19 18:40 | PN ---
Date of Progress Note: 04/19/2019 Subjective: Patient is seen and examined. Chart reviewed and case discussed with RN. Patient is do ing well. He does not have any complaints. Medications: List reviewed. Physical Examination: Vital Signs: Temperature 97.2, heart rate 77, blood pressure 175/94, respirations 16, O2 of 96% on r oom air. General: Awake, alert, oriented x3, not in any acute distress, obese male. CV: S1, S2. Regular rate and rhythm. Peripheral pulses present. Respiratory: Moving air well bilaterally. No wheezing or stridor. No use of accessory muscles. Gastrointestinal: Abdomen is soft, nontender, nondistended. Positive bowel sounds. No guarding or rigidity. Extremities: No clubbing, cyanosis, edema. Neurologic: Nonfocal. Skin: Right foot bandaged clean, dry, intact. No drainage. Laboratory Data: Sodium 142, potassium 3.5, chloride 111, CO2 of 28, BUN 8, creatinine 0.62, glucose 169, calcium 7.9. WBC 5.6, H and H of 12.8 and 37.7, platelets 322, neutrophils 61%. Wound culture s, Staphylococcus aureus and Providencia. Assessment: 1.Diabetic foot ulcer, status post debridement by Dr. Ortiz. Cultures are growing out Staphylococcu s aureus and Providencia. We will continue with IV antibiotics. Patient is on vancomycin and Levaqu in. 2.Osteomyelitis secondary to diabetic foot ulcer. Patient will need 6 weeks of IV antibiotics. Sarah reciate Dr. Alexandre's input. Blood cultures, sensitive to Levaquin. 3.Essential hypertension. We will continue home medications. Patient is on amlodipine. 4.Diabetes mellitus type 2. Continue with Lantus and sliding scale insulin. Patient has hyperglyce mahamed and skin infection, insulin requiring. 5.Obesity, BMI 34. Plan: Patient is being set up for outpatient IV antibiotics. PICC line has been placed. Discharged once outpatient IV antibiotics have been set up. SA/MODL Voice ID: [id number] Report ID: [id number]
[2019-04-20 05:01] LABS: BUN Blood Urea Nitrogen 13 mg/dL (7-18); Bicarbonate 28 mmol/L (21-32); Glucose Level 165 mg/dL (74-106); Potassium 3.6 mmol/L (3.5-5.1); Sodium Level 142 mmol/L (136-145)
[2019-04-20] MEDS: LEVOTHYROXINE SOD 0.05 MG TABLET PO SCH (06:07)
[2019-04-20] MEDS ORDERED: POTASSIUM CL SA 10 MEQ TAB PO ONE (08:00)
[2019-04-20] MEDS: INSULIN GLARGINE 100 UNITS/ML SQ SCH (09:28)
[2019-04-20] MEDS: INSULIN -REGULAR HUMAN 50 UNIT/0.5 ML ML SQ SCH ×2 (09:29→12:43)
[2019-04-20] MEDS: DOCUSATE NA 100 MG CAP PO SCH (09:31)
[2019-04-20] MEDS: Levofloxacin 750mg IV 750 MG/150 ML BAG IV SCH (09:34)
[2019-04-20] MEDS: ENOXAPARIN 40 MG/0.4 ML SQ SCH (09:36)
[2019-04-20] MEDS: AMLODIPINE 10 MG TAB PO SCH (09:37)
[2019-04-20] MEDS: lisinopriL 20 MG TAB PO SCH (09:41)
[2019-04-20 10:16] VITALS: O2SAT 95
[2019-04-20] MEDS: VANCOMYCIN 2.25 GM in NA CHLORIDE 0.9% 500 ML IVPB SCH (11:04)
[2019-04-20 12:28] VITALS: TEMP 97.2
[2019-04-20] MEDS: HYDRALAZINE HCL 20 MG/ML VIAL IV PRN (15:08)
[2019-04-20 15:21] VITALS: BP 158/80
--- NOTE | 2019-04-20 17:34 | PN ---
Subjective: Patient is lying in bed. Denies any headache, nausea, vomiting, chest pain, abdominal p ain, constipation, or diarrhea. Objective: Vital Signs: Temperature 98, pulse 83, respirations 15, blood pressure 180/94. Lungs: Basal crackles. Heart: S1, S2. Regular. Abdomen: Soft, nontender. Bowel sounds present. Extremities: Trace edema. Right foot wound noted 1.5 x 3 x 0.3 cm in depth. The wound at the base of the big toe is 1 x 1 cm with 0.1 in depth. Assessment/plan: Diabetic foot ulcer, status post debridement. Recommend to keep leg elevated as mu ch as possible. Start silver alginate and keep pressure offloaded on the wound site. Continue IV an tibiotic, Levaquin and vancomycin. We will follow the patient as needed. NF/MODL Voice ID: [id number] Report ID: [id number]
--- NOTE | 2019-04-21 03:46 | DS ---
Date of Discharge: 04/20/2019 Consultants: 1.Dr. Alexandre, Infectious Disease. 2.Dr. Ortiz with General Surgery. Procedures: On 04/15/2019, incision and drainage of the right foot diabetic foot ulcer by Dr. Ortiz. Admitting Diagnoses: 1.Diabetic foot ulcer on the right foot. 2.Osteomyelitis. 3.Essential hypertension. 4.Diabetes mellitus type 2. Discharge Diagnoses: 1.Acute diabetic foot cellulitis secondary to Providencia and Staph. 2.Osteomyelitis. 3.Diabetes mellitus type 2 insulin requiring with hyperglycemia and skin infection. 4.Essential hypertension, stable. 5.Obesity, BMI 34. Hospital Course: Patient is a 63-year-old male with history of diabetes, comes in with infected righ t fifth toe and wound. Patient's x-ray showed presence of osteomyelitis. Cultures were obtained. H e was started on broad-spectrum IV antibiotics. Dr. Ortiz with General Surgery was consulted. Shaheed nt had procedure as mentioned above. Patient was seen by Dr. Alexandre with Infectious Disease. His cu ltures grew out Providencia and Staph, which was sensitive to Levaquin. His blood cultures remained negative. The patient's symptoms improved. His wound looked better. He did not have any signs of s epsis. Lactate was normal. Patient was then set up with IV antibiotics at home. PICC line was plac ed. His primary care physician is to follow the labs during IV antibiotics at home. He will be on L evaquin 750 mg daily for a total of 6 weeks. He has been in the facility for 6 days already. He nee ds to follow up with surgeon Dr. Ortiz [facility] on 04[facility]21/2019. Wound care instruc tions per Dr. Ortiz. Follow up with Infectious Disease, Dr. Alexandre in 2 weeks. Return to ER for wor sening condition. Diet: Diabetic. Activity: As tolerated. Physical Examination: General: Awake, alert, and oriented x3. No acute distress. Obese male. CV: S1, S2. Respiratory: Moving air well bilaterally. Abdomen: Abdomen is soft, nontender, nondistended. Positive bowel sounds. Extremities: No clubbing, cyanosis. Mild edema of the right foot. Neurologic: Nonfocal. Skin: Right foot incision site clean, dry, and intact, bandaged. No drainage. Total time spent discharging the patient was 36 minutes. MERT Voice ID: [id number] Report ID: [id number]
== END 2019-04-20 15:24 | disposition home health service (06) | DRG 638 ==
LOC: ER 07:52 → ERHOLD 15:21 → 4TH 20:40
PROVIDERS: ADMIT Internal Medicine; ATTEND Internal Medicine
PROC: 0J9Q0ZX Drainage of Right Foot Subcutaneous Tissue and Fascia, Open Approach, Diagnostic (ICD-10-PCS; principal; 2019-04-15 14:45)
PROC: 02HV33Z Insertion of Infusion Device into Superior Vena Cava, Percutaneous Approach (ICD-10-PCS; 2019-04-16)
DX: E11.69 Type 2 diabetes mellitus with other specified complication (principal); M86.171 Other acute osteomyelitis, right ankle and foot; E11.621 Type 2 diabetes mellitus with foot ulcer; E11.65 Type 2 diabetes mellitus with hyperglycemia; B95.61 Methicillin susceptible Staphylococcus aureus infection as the cause of diseases classified elsewhere; B96.89 Other specified bacterial agents as the cause of diseases classified elsewhere; I10 Essential (primary) hypertension; E66.9 Obesity, unspecified; Z68.34 Body mass index [BMI] 34.0-34.9, adult; F17.220 Nicotine dependence, chewing tobacco, uncomplicated; E11.40 Type 2 diabetes mellitus with diabetic neuropathy, unspecified
CPT/HCPCS: 36415; 71045; 80048; 80076; 80202; 81003; 81015; 82947; 83605; 83735; 83880; 84100; 84145; 84443; 85025; 85610; 87040; 87070; 87075; 87077; 87086; 87088; 87186; 87205; 93005; 94760; 96361; 96365; 96366; 96368; 99285; J0360; J0692; J1650; J1815; J2543; J2704; J3010; J7030; J7040

== ENCOUNTER 2020-09-26 11:31 | Inpatient (IN) | payer BC, SELFPAY ==
[2020-09-26 14:49] LABS: Urine Blood Negative (Negative); Urine Glucose 2+ (Negative); Urine Protein 1+ (Negative); Urine Specific Gravity 1.025 (1.005-1.030); Urine pH 6.5 (5.0-7.0)
[2020-09-26] MEDS ORDERED: PIPERACIL/TAZO 3.375 GM VIAL IV ONE (14:55)
[2020-09-26] MEDS ORDERED: NA CHLORIDE 0.9% 100 ML ONE (14:55)
[2020-09-26 15:17] LABS: Urine Bacteria <20 /HPF (NONE SEEN); Urine RBC <5 /HPF (NONE SEEN)
--- NOTE | 2020-09-26 15:32 | RAD REPORT ---
EXAM DESCRIPTION: Елена Single View09/26/2020 3:26 pm CLINICAL HISTORY: Chest pain COMPARISON: 2019 FINDINGS: Upper lobe vessels are prominent indicative of pulmonary venous hypertension. The lungs appear clear of acute infiltrate. The heart is borderline enlarged
--- NOTE | 2020-09-26 15:32 | EDPHYS ---
Physician Documentation [facility] Name: Vance Alfaro Age: 64 yrs Sex: Male : 1955 Arrival Date: 09/26/2020 Time: 11:32 Bed 24 Private MD: ED Physician Fish Dunbar HPI: 09/27 07:58 This 64 yrs old Male presents to ER via Ambulatory with complaints of Leg kdr Swelling - infection. 07:58 The patient presents with pain, swelling, tenderness. The complaints affect the lateral kdr aspect of left calf, left calf, medial aspect of left calf and left díaz, lateral aspect of right calf, right calf, medial aspect of right calf and right díaz. Context: The problem was sustained at home, resulted from Cellulitis , the patient can fully bear weight, the patient is able to ambulate. Onset: The symptoms/episode began/occurred at an unknown time. Long standing. Modifying factors: The symptoms are alleviated by nothing. the symptoms are aggravated by nothing. Associated signs and symptoms: The patient has no apparent associated signs or symptoms. Treatment prior to arrival includes: prescription medications, Two courses of abx without resolution or improvement. Severity of symptoms: At their worst the symptoms were mild, moderate, just prior to arrival, in the emergency department the symptoms are unchanged. The patient has experienced similar episodes in the past, multiple times. Historical: - Allergies: 09/26 12:26 No Known Allergies; jl7 - PMHx: 12:26 Diabetes - IDDM; Hypertension; Hypothyroidism; jl7 - Immunization history:: Adult Immunizations up to date, Client reports receiving the 2nd dose of the Covid vaccine. - Social history:: Smoking status: Patient denies any tobacco usage or history of. ROS: 09/27 07:58 Constitutional: Negative for fever, chills, and weight loss, Eyes: Negative for injury, kdr pain, redness, and discharge, ENT: Negative for injury, pain, and discharge, Neck: Negative for injury, pain, and swelling, Cardiovascular: Negative for chest pain, palpitations, and edema, Respiratory: Negative for shortness of breath, cough, wheezing, and pleuritic chest pain, Abdomen/GI: Negative for abdominal pain, nausea, vomiting, diarrhea, and constipation, Back: Negative for injury and pain, : Negative for injury, bleeding, discharge, and swelling, MS/Extremity: Negative for injury and deformity, Neuro: Negative for headache, weakness, numbness, tingling, and seizure activity. Psych: Negative for depression, anxiety, suicide ideation, homicidal ideation, and hallucinations, Allergy/Immunology: Negative for hives, rash, and allergies, Endocrine: Negative for neck swelling, polydipsia, polyuria, polyphagia, and marked weight changes, Hematologic/Lymphatic: Negative for swollen nodes, abnormal bleeding, and unusual bruising. Skin: Positive for cellulitis, erythema, swelling, of the right leg and left leg. Exam: 07:58 Constitutional: This is a well developed, well nourished patient who is awake, alert, kdr and in no acute distress. Head/Face: Normocephalic, atraumatic. Eyes: Pupils equal round and reactive to light, extra-ocular motions intact. Lids and lashes normal. Conjunctiva and sclera are non-icteric and not injected. Cornea within normal limits. Periorbital areas with no swelling, redness, or edema. Neck: Trachea midline, no thyromegaly or masses palpated, and no cervical lymphadenopathy. Supple, full range of motion without nuchal rigidity, or vertebral point tenderness. No Meningismus. Chest/axilla: Normal chest wall appearance and motion. Nontender with no deformity. No lesions are appreciated. Cardiovascular: Regular rate and rhythm with a normal S1 and S2. No gallops, murmurs, or rubs. Normal PMI, no JVD. No pulse deficits. Respiratory: Lungs have equal breath sounds bilaterally, clear to auscultation and percussion. No rales, rhonchi or wheezes noted. No increased work of breathing, no retractions or nasal flaring. Abdomen/GI: Soft, non-tender, with normal bowel sounds. No distension or tympany. No guarding or rebound. No evidence of tenderness throughout. Back: No spinal tenderness. No costovertebral tenderness. Full range of motion. MS/ Extremity: Pulses equal, no cyanosis. Neurovascular intact. Full, normal range of motion. Neuro: Awake and alert, GCS 15, oriented to person, place, time, and situation. Cranial nerves II-XII grossly intact. Motor strength 5/5 in all extremities. Sensory grossly intact. Cerebellar exam normal. Normal gait. Psych: Awake, alert, with orientation to person, place and time. Behavior, mood, and affect are within normal limits. 07:58 Skin: Appearance: normal except for affected area, Color: cellulitis, that is mild, that is moderate, confluent, on the right leg and left leg. Vital Signs: 09/26 12:22 BP 158 / 93; Pulse 88; Resp 17; Temp 97.8; Pulse Ox 94% ; Weight 153.31 kg; Height 6 jl7 ft. 3 in. (190.50 cm); Pain 0/10; 14:23 BP 166 / 88; Pulse 84; Resp 18; Pulse Ox 97% on R/A; ld1 16:05 BP 149 / 92; Pulse 76; Resp 18; Pulse Ox 98% on R/A; Pain 0/10; ld1 17:29 BP 159 / 86; Pulse 89; Resp 18; Pulse Ox 98% on R/A; ld1 12:22 Body Mass Index 42.25 (153.31 kg, 190.50 cm) jl7 MDM: 15:31 Patient medically screened. kdr 09/27 07:58 Data reviewed: vital signs, nurses notes, lab test result(s), radiologic studies. kdr Counseling: I had a detailed discussion with the patient and/or guardian regarding: the historical points, exam findings, and any diagnostic results supporting the discharge/admit diagnosis, lab results, radiology results, the need for further work-up and treatment in the hospital. 09/26 14:24 Order name: Amylase, Serum kdr 09/26 14:24 Order name: Basic Metabolic Panel kdr 09/26 14:24 Order name: Blood Culture Adult (2) kdr 09/26 14:24 Order name: CBC with Diff kdr 09/26 14:24 Order name: CPK kdr 09/26 14:24 Order name: Ckmb kdr 09/26 14:24 Order name: LFT's kdr 09/26 14:24 Order name: Lactate kdr 09/26 14:24 Order name: Lipase kdr 09/26 14:24 Order name: Procalcitonin kdr 09/26 14:24 Order name: Protime (+inr) kdr 09/26 14:24 Order name: Ptt, Activated kdr 09/26 14:24 Order name: Urine Microscopic Only kdr 09/26 14:25 Order name: Amylase EDMS 09/26 14:24 Order name: Chest Single View XRAY kdr 09/26 14:24 Order name: Accucheck; Complete Time: 15:36 kdr 09/26 14:24 Order name: IV Saline Lock - Large Bore; Complete Time: 15:36 kdr 09/26 14:24 Order name: Labs collected and sent; Complete Time: 15:36 kdr 09/26 14:24 Order name: Urine Dipstick-Ancillary (obtain specimen); Complete Time: 14:49 kdr 09/26 14:25 Order name: Basic Metabolic Panel EDMS 09/26 14:49 Order name: Urine Dipstick-Ancillary EDMS 09/26 15:38 Order name: Glucose, Ancillary Testing EDMS 09/26 16:34 Order name: Vancomycin Level Trough EDMS 09/26 16:38 Order name: Consistent Carb (ADA) 2000 Eddie EDMS 09/26 20:16 Order name: Glucose, Ancillary Testing EDMS Administered Medications: 09/26 16:04 Drug: Zosyn (piperacillin-tazobactam) 3.375 grams Route: IVPB; Infused Over: 60 mins; ld1 Site: right antecubital; 17:30 Follow up: Response: No adverse reaction; IV Status: Completed infusion ld1 17:28 Drug: vancoMYCIN 1.5 grams Route: IVPB; Rate: calculated rate; Site: right antecubital; ld1 17:30 Follow up: Response: No adverse reaction; IV Status: Infusion continued ld1 Disposition Summary: 09/26/20 15:31 Hospitalization Ordered Hospitalization Status: Inpatient Admission kdr Provider: Balta Gordon Location: Telemetry/MedSurg (observation) kdr Condition: Fair kdr Problem: an ongoing problem kdr Symptoms: are unchanged kdr Bed/Room Type: Standard kdr Room Assignment: 218(09/26/20 20:12) mw Diagnosis - Cellulitis of left lower limb kdr - Cellulitis of right lower limb kdr Forms: - Medication Reconciliation Form kdr - SBAR form kdr Signatures: Dispatcher [employer] EDNY Lizeth Weems RN RN mw Rittger, Kevin, MD MD kdr Leal, Jahala, RN RN jl7 Sushila Jarvis RN RN ld1 Corrections: (The following items were deleted from the chart) 20:12 15:31 kdr mw
--- NOTE | 2020-09-26 15:32 | ER ---
Nurse's Notes [facility] Name: Vance Alfaro Age: 64 yrs Sex: Male : 1955 Arrival Date: 09/26/2020 Time: 11:32 Bed 24 Private MD: Diagnosis: Cellulitis of left lower limb;Cellulitis of right lower limb Presentation: 09/26 12:22 Chief complaint: Patient states: Bilateral leg skin infections, PCP put him on Doxy x jl7 14 days and it hasn't cleared up, sent from healthcare business analyst to be evaluated. Coronavirus screen: Client denies travel out of the [place] in the last 14 days. At this time, the client does not indicate any symptoms associated with coronavirus-19. Ebola Screen: No symptoms or risks identified at this time. Initial Sepsis Screen: Does the patient meet any 2 criteria? No. Patient's initial sepsis screen is negative. Does the patient have a suspected source of infection? No. Patient's initial sepsis screen is negative. Risk Assessment: Do you want to hurt yourself or someone else? Patient reports no desire to harm self or others. Onset of symptoms was August 2020. 12:22 Method Of Arrival: Ambulatory jl7 12:22 Acuity: MIKAYLA 3 jl7 Triage Assessment: 12:26 General: Appears in no apparent distress. uncomfortable, Behavior is calm, cooperative, jl7 appropriate for age. Pain: Denies pain. Historical: - Allergies: 12:26 No Known Allergies; jl7 - PMHx: 12:26 Diabetes - IDDM; Hypertension; Hypothyroidism; jl7 - Immunization history:: Adult Immunizations up to date, Client reports receiving the 2nd dose of the Covid vaccine. - Social history:: Smoking status: Patient denies any tobacco usage or history of. Screenin:23 Abuse screen: Denies threats or abuse. Denies injuries from another. Nutritional ld1 screening: No deficits noted. Tuberculosis screening: No symptoms or risk factors identified. Fall Risk None identified. Assessment: 14:20 General: Appears in no apparent distress. uncomfortable, Behavior is calm, cooperative, ld1 appropriate for age. Pain: Denies pain. Neuro: Level of Consciousness is awake, alert, obeys commands, Oriented to person, place, time, situation. Cardiovascular: Capillary refill < 3 seconds Patient's skin is warm and dry. Respiratory: Airway is patent Respiratory effort is even, unlabored, Respiratory pattern is regular, symmetrical. 14:23 GI: Abdomen is flat, non-distended. : No signs and/or symptoms were reported ld1 regarding the genitourinary system. EENT: No signs and/or symptoms were reported regarding the EENT system. Derm: Wound noted right leg and left leg Reports Getting scratched by his dog two weeks ago. Receive antibiotics from PCP, did not clear up infection. Musculoskeletal: No signs and/or symptoms reported regarding the musculoskeletal system. 16:05 Reassessment: Patient appears in no apparent distress at this time. Patient and/or ld1 family updated on plan of care and expected duration. Pain level reassessed. Laying in bed with at bedside. 17:29 Reassessment: Patient appears in no apparent distress at this time. No changes from ld1 previously documented assessment. Patient and/or family updated on plan of care and expected duration. Pain level reassessed. Vital Signs: 12:22 BP 158 / 93; Pulse 88; Resp 17; Temp 97.8; Pulse Ox 94% ; Weight 153.31 kg; Height 6 jl7 ft. 3 in. (190.50 cm); Pain 0/10; 14:23 BP 166 / 88; Pulse 84; Resp 18; Pulse Ox 97% on R/A; ld1 16:05 BP 149 / 92; Pulse 76; Resp 18; Pulse Ox 98% on R/A; Pain 0/10; ld1 17:29 BP 159 / 86; Pulse 89; Resp 18; Pulse Ox 98% on R/A; ld1 12:22 Body Mass Index 42.25 (153.31 kg, 190.50 cm) jl7 ED Course: 11:32 Patient arrived in ED. am2 11:46 Fish Dunbar MD is Attending Physician. kdr 12:26 Triage completed. jl7 12:26 Arm band placed on right wrist. jl7 12:27 Patient placed in waiting room, Patient notified of wait time. jl7 14:04 Sushila Jarvis, FLORENCE is Primary Nurse. ld1 14:15 Inserted saline lock: 20 gauge in right antecubital area, using aseptic technique. ld1 Blood collected. 14:23 Patient has correct armband on for positive identification. Placed in gown. Bed in low ld1 position. Call light in reach. Side rails up X2. herb doctor on. Pulse ox on. NIBP on. 14:49 Urine Microscopic Only Sent. ld1 15:26 Chest Single View XRAY In Process Unspecified. EDMS 15:27 Balta Gordon is Hospitalizing Provider. kdr 20:44 No provider procedures requiring assistance completed. Patient admitted, IV remains in ld1 place. intact, bleeding controlled, No redness/swelling at site. Administered Medications: 16:04 Drug: Zosyn (piperacillin-tazobactam) 3.375 grams Route: IVPB; Infused Over: 60 mins; ld1 Site: right antecubital; 17:30 Follow up: Response: No adverse reaction; IV Status: Completed infusion ld1 17:28 Drug: vancoMYCIN 1.5 grams Route: IVPB; Rate: calculated rate; Site: right antecubital; ld1 17:30 Follow up: Response: No adverse reaction; IV Status: Infusion continued ld1 Outcome: 15:31 Decision to Hospitalize by Provider. kdr 20:44 Admitted to Med/surg accompanied by nurse, via wheelchair, room 218, with chart, Report ld1 called to FLORENCE giron 20:44 Condition: stable 20:56 Patient left the ED. ld1 Signatures: Dispatcher [employer] EDCT Fish Dunbar MD MD kdr Leal, Jahala RN RN jl7 Astrid Rogers Lauren, RN RN ld1
[2020-09-26] MEDS ORDERED: VANCOMYCIN/NS 1 gm 1 GM/250 ML BAG IVPB ONE (16:00)
[2020-09-26] MEDS ORDERED: PIPER/TAZO/NS 3.375gm 3.375 GM/100 ML BAG IV ONE (16:00)
[2020-09-26 16:04] LABS: Absolute Lymphocytes (CBC) 1.2 K/uL (0.7-4.9); Basophils % 0.6 % (0-1.3); Hematocrit 44.2 % (39.6-49.0); Lymphocytes % 18.9 % (15.3-44.8); MPV 8.2 fL (7.6-11.3); RBC Red Blood Cell Count 5.04 M/uL (4.33-5.43)
[2020-09-26 16:08] LABS: Protime INR 1.12
[2020-09-26 16:18] LABS: ALT/SGPT 33 U/L (12-78); AST/SGOT 20 U/L (15-37); Albumin 3.9 g/dL (3.4-5.0); Alkaline Phosphatase 89 U/L (45-117); Amylase 57 U/L (25-115); BUN Blood Urea Nitrogen 11 mg/dL (7-18); Bicarbonate 29 mmol/L (21-32); Bilirubin Direct 0.3 mg/dL (0-0.2); Bilirubin Total 1.4 mg/dL (0.2-1.0); CKMB Creatine Kinase MB 7.4 ng/mL (1.0-3.6); Creatine Phosphokinase 247 U/L (39-308); Glucose Level 237 mg/dL (74-106); Lipase 395 U/L (73-393); Potassium 3.7 mmol/L (3.5-5.1); Protein, Total 7.5 g/dL (6.4-8.2); Sodium Level 141 mmol/L (136-145)
[2020-09-26] MEDS ORDERED: HYDRALAZINE HCL 20 MG/ML VIAL IV PRN (16:30)
[2020-09-26] MEDS ORDERED: ONDANSETRON 4 MG/2 ML VIAL IV PRN (16:34)
[2020-09-26] MEDS ORDERED: ACETAMINOPHEN 500 MG TAB PO PRN (16:34)
[2020-09-26] MEDS ORDERED: HYDROCODONE/APAP 10/325 TAB PO PRN (16:37)
--- NOTE | 2020-09-26 16:39 | P.HP ---
Certification for Inpatient Patient admitted to: Inpatient With expected LOS: >2 Midnights Patient will require the following post-hospital care: None Practitioner: I am a practitioner with admitting privileges, knowledge of patient current condition, hospital course, and medical plan of care. Services: Services provided to patient in accordance with Admission requirements found in Title 42 Section 412.3 of the Code of Federal Regulations Patient History Date of Service: 09/27/20 History of Present Illness: Patient is a 64-year-old male with a past medical history significant for DM 2, hypertension, hypothyroidism who presents with complaint of bilateral lower extremity redness and swelling that has been ongoing for the past 6 weeks. Patient reported that he had some dog scratch wounds on his bilateral extremities and thereafter patient started experiencing present symptoms which became worse over time. Patient reported that he followed up initially when symptoms started with his primary care doctor and was placed on doxycycline for 14 days. Patient denies relief of symptoms and patient followed up with his PCP the second time and had an extension of antibiotics administration for another 10 days. Patient indicated that his symptoms did not denita with antibiotics and when he followed up with his PCP the patient was referred to follow-up with his specialist. Patient went to see his attendant honor bar and patient was referred to the hospital for failed outpatient antibiotics therapy. Patient denies any other signs or symptoms. Symptoms are aggravated or relieved by nothing. Patient decided to present to the hospital as directed by her attendant honor bar. Allergies No Known Allergies Allergy (Verified 04/14/19 22:16) Home medications list reviewed: No Home Medications: Insulin Aspart (Niacinamide) [Fiasp 100 Unit/ml Flextouch] 8 units SQ TID 04/14/19 Levothyroxine [Synthroid*] 50 mcg PO [id number] 04/14/19 lisinopriL [Lisinopril] 1 tab PO DAILY 04/14/19 Amlodipine [Norvasc*] 10 mg PO DAILY #30 tab 04/20/19 Atorvastatin Calcium 20 mg PO DAILY 04/26/19 - Past Medical/Surgical History Diabetic: Yes -: DM type 2 -: Hypertension -: Hypothyroidism -: Joint Replacement L knee - Family History Father -: Diabetes Mother -: Cancer Notes: colon Brother -: Diabetes Sister -: Diabetes - Social History Smoking Status: Never smoker Alcohol use: Yes CD- Drugs: No Caffeine use: Yes Place of Residence: Home Review of Systems General: Unremarkable Eyes: Unremarkable ENT: Unremarkable Respiratory: Unremarkable Cardiovascular: Unremarkable Gastrointestinal: Unremarkable Genitourinary: Unremarkable Musculoskeletal: Unremarkable Integumentary: As per HPI Neurological: Unremarkable Lymphatics: Unremarkable Physical Examination - Physical Exam General: Alert, In no apparent distress, Oriented x3 HEENT: Atraumatic, PERRLA, Mucous membr. moist/pink, EOMI, Sclerae nonicteric Neck: Supple, 2+ carotid pulse no bruit, No LAD, Without JVD or thyroid abnormality Respiratory: Clear to auscultation bilaterally, Normal air movement Cardiovascular: No edema, Regular rate/rhythm, Normal S1 S2 Capillary refill: Brisk Gastrointestinal: Normal bowel sounds, No tenderness Musculoskeletal: No clubbing, No tenderness Integumentary: No rashes, Skin breakdown, Tenderness/swelling, Erythema, Warmth Neurological: Normal gait, Normal speech, Normal strength at 5/5 x4 extr, Normal tone, Normal affect Lymphatics: No axilla or inguinal lymphadenopathy External genitalia: Deferred Rectal: Deferred - Studies Laboratory Data (last 24 hrs) 09/26/20 15:20: PT 12.9 H, INR 1.12, APTT 27.7 09/26/20 15:20: WBC 6.40, Hgb 14.9, Hct 44.2, Plt Count 242 09/26/20 15:20: Sodium 141, Potassium 3.7, BUN 11, Creatinine 0.74, Glucose 237 H, Total Bilirubin 1.4 H, AST 20, ALT 33, Alkaline Phosphatase 89, Amylase 57, Lipase 395 H Assessment and Plan - Plan --Bilateral lower extremity cellulitis. Wound and blood cultures pending. Patient placed on antibiotics. Wound care as needed. --Hypertension. Poorly controlled. Continue home medication and hydralazine as needed. --DM2. BS monitoring with sliding scale insulin. --HLD. Continue statin. --Hypothyroidism. Continue Synthroid. --Diabetic Neuropathy. Continue home medication when available. --Obesity. Likely secondary to excess calories intake. Patient counseled on diet and exercise therapy. --DVT prophylaxis with Lovenox subQ Discharge Plan: Home Plan to discharge in: Greater than 2 days - Advance Directives Does patient have a Living Will: No Does patient have a Durable POA for Healthcare: No - Code Status/Comfort Care Code Status Assessed: Yes Code Status: Full Code Physician Review: Patient Assessed, Agree with Above Assessment and Plan
[2020-09-26] MEDS: ENOXAPARIN 40 MG/0.4 ML SQ SCH (17:00)
[2020-09-26] MEDS ORDERED: ENOXAPARIN 40 MG/0.4 ML SQ ONE (19:47)
[2020-09-26] MEDS ORDERED: VANCOMYCIN 1 GM in NA CHLORIDE 0.9% 500 ML IVPB SCH (21:00)
[2020-09-26] MEDS ORDERED: CEFEPIME 1 GM/VIAL IV SCH (21:00)
[2020-09-26 21:30] VITALS: BMI 42.2
[2020-09-26] MEDS ORDERED: CEFEPIME/SWI 1gm 10 ML ONE (21:30)
[2020-09-26] MEDS ORDERED: VANCOMYCIN/NS 1 gm 1 GM/250 ML BAG IVPB SCH (22:00)
[2020-09-26] MEDS ORDERED: NA CHLORIDE 0.9% 250 ML ONE (22:15)
[2020-09-26] MEDS ORDERED: VANCOMYCIN 1 GM/VIAL ONE (22:15)
[2020-09-26] MEDS: CEFEPIME/SWI 1gm 10 ML IVP SCH (22:23)
[2020-09-26] MEDS: INSULIN -REGULAR HUMAN 50 UNIT/0.5 ML ML SQ SCH (22:24)
[2020-09-27 05:42] LABS: Protime INR 1.14
[2020-09-27 05:43] LABS: Absolute Lymphocytes (CBC) 1.3 K/uL (0.7-4.9); Basophils % 0.5 % (0-1.3); Hematocrit 38.9 % (39.6-49.0); Lymphocytes % 20.7 % (15.3-44.8); MPV 8.3 fL (7.6-11.3); RBC Red Blood Cell Count 4.44 M/uL (4.33-5.43)
[2020-09-27 05:58] LABS: BUN Blood Urea Nitrogen 14 mg/dL (7-18); Bicarbonate 26 mmol/L (21-32); Glucose Level 178 mg/dL (74-106); Potassium 3.6 mmol/L (3.5-5.1); Sodium Level 142 mmol/L (136-145)
[2020-09-27] MEDS: CEFEPIME/SWI 1gm 10 ML IVP SCH ×3 (09:00→21:39)
[2020-09-27] MEDS ORDERED: POTASSIUM CL SA 10 MEQ TAB PO ONE (09:00)
[2020-09-27] MEDS: VANCOMYCIN 2 GM in NA CHLORIDE 0.9% 500 ML IVPB SCH ×2 (10:14→21:39)
[2020-09-27] MEDS: ENOXAPARIN 40 MG/0.4 ML SQ SCH (10:14)
[2020-09-27] MEDS: INSULIN -REGULAR HUMAN 50 UNIT/0.5 ML ML SQ SCH ×4 (10:15→21:00)
--- NOTE | 2020-09-27 15:50 | P.PN ---
Subjective Date of Service: 09/27/20 Patient states his lower extremity redness and pain are better. Erythema slightly improved compared to yesterday. No fever. Physical Examination - Vital Signs Temperature: 98.4 F Blood Pressure: 136/74 Pulse: 83 Respirations: 20 Pulse Ox (%): 95 - Physical Exam General: Alert, In no apparent distress, Oriented x3 HEENT: Mucous membr. moist/pink Neck: JVD not distended Respiratory: Clear to auscultation bilaterally, Normal air movement Cardiovascular: Regular rate/rhythm, Normal S1 S2, Edema (Bilateral lower extremities) Gastrointestinal: Normal bowel sounds, Soft and benign, Non-distended, No tenderness Musculoskeletal: Swelling (Bilateral legs) Integumentary: Other (Venous stasis ulcers of bilateral lower extremities) Neurological: Normal strength at 5/5 x4 extr - Studies Laboratory Data (last 24 hrs) 09/26/20 15:20: PT 12.9 H, INR 1.12, APTT 27.7 09/26/20 15:20: WBC 6.40, Hgb 14.9, Hct 44.2, Plt Count 242 09/26/20 15:20: Sodium 141, Potassium 3.7, BUN 11, Creatinine 0.74, Glucose 237 H, Total Bilirubin 1.4 H, AST 20, ALT 33, Alkaline Phosphatase 89, Amylase 57, Lipase 395 H Assessment And Plan - Current Problems (Diagnosis) (1) Cellulitis of both lower extremities Current Visit: Yes Status: Acute (2) Venous stasis dermatitis of both lower extremities Current Visit: Yes Status: Acute (3) Venous stasis ulcers of both lower extremities Current Visit: Yes Status: Acute (4) Hypertension Current Visit: No Status: Acute (5) Hypothyroid Current Visit: No Status: Acute (6) Diabetes Current Visit: No Status: Acute - Plan Continue current antibiotics. Keep lower extremities elevated. Trial of IV Lasix. Pain management as needed. Continue insulin sliding scale and pre meal insulin for glucose management.
[2020-09-27] MEDS: INSULIN LISPRO 100 UNIT/1 ML SQ SCH (18:03)
[2020-09-27] MEDS: FUROSEMIDE 40 MG/4 ML VIAL IV SCH (18:04)
[2020-09-28] MEDS: LEVOTHYROXINE SOD 0.05 MG TABLET PO SCH (05:21)
[2020-09-28 06:15] LABS: Potassium 3.5 mmol/L (3.5-5.1)
[2020-09-28] MEDS: INSULIN -REGULAR HUMAN 50 UNIT/0.5 ML ML SQ SCH ×4 (07:30→22:33)
[2020-09-28] MEDS: INSULIN LISPRO 100 UNIT/1 ML SQ SCH ×3 (08:00→17:00)
[2020-09-28] MEDS: CEFEPIME/SWI 1gm 10 ML IVP SCH ×2 (09:00→22:33)
[2020-09-28] MEDS ORDERED: POTASSIUM CL SA 10 MEQ TAB PO ONE (09:00)
[2020-09-28] MEDS: ENOXAPARIN 40 MG/0.4 ML SQ SCH (09:39)
[2020-09-28] MEDS: lisinopriL 20 MG TAB PO SCH (09:39)
[2020-09-28] MEDS: AMLODIPINE 10 MG TAB PO SCH (09:40)
[2020-09-28] MEDS: VANCOMYCIN 2 GM in NA CHLORIDE 0.9% 500 ML IVPB SCH ×2 (09:40→22:33)
[2020-09-28] MEDS: ATORVASTATIN 20 MG TAB PO SCH (09:40)
[2020-09-28] MEDS: FUROSEMIDE 40 MG/4 ML VIAL IV SCH ×2 (09:41→18:11)
--- NOTE | 2020-09-28 14:01 | P.PN ---
Subjective Date of Service: 09/28/20 Patient lower extremity swelling have significantly improved. Not much change in erythema from yesterday. No fever. Physical Examination - Vital Signs Temperature: 98.7 F Blood Pressure: 147/77 Pulse: 76 Respirations: 16 Pulse Ox (%): 95 - Physical Exam General: Alert, In no apparent distress, Oriented x3 HEENT: Mucous membr. moist/pink Neck: JVD not distended Respiratory: Clear to auscultation bilaterally, Normal air movement Cardiovascular: Regular rate/rhythm, Normal S1 S2, Edema (Bilateral lower extremity edema significantly improved) Gastrointestinal: Soft and benign, Non-distended, No tenderness Musculoskeletal: No contractures, No tenderness Integumentary: Venous stasis ulcer (Bilateral lower extremities) Neurological: Normal strength at 5/5 x4 extr Assessment And Plan - Current Problems (Diagnosis) (1) Cellulitis of both lower extremities Current Visit: Yes Status: Acute (2) Venous stasis dermatitis of both lower extremities Current Visit: Yes Status: Acute (3) Venous stasis ulcers of both lower extremities Current Visit: Yes Status: Acute (4) Hypertension Current Visit: No Status: Acute (5) Hypothyroid Current Visit: No Status: Acute (6) Diabetes Current Visit: No Status: Acute - Plan Continue current antibiotics. Keep lower extremities elevated. Lower extremity edema responded well to Lasix. Continue Lasix. Local wound care. Follow wound culture. Blood cultures: no growth to date. Pain management as needed. Continue insulin sliding scale and pre meal insulin for glucose management.
[2020-09-29 05:56] LABS: Absolute Lymphocytes (CBC) 1.4 K/uL (0.7-4.9); Basophils % 0.7 % (0-1.3); Hematocrit 40.6 % (39.6-49.0); Lymphocytes % 21.6 % (15.3-44.8); MPV 7.8 fL (7.6-11.3)
[2020-09-29] MEDS: LEVOTHYROXINE SOD 0.05 MG TABLET PO SCH (06:07)
[2020-09-29 06:10] LABS: BUN Blood Urea Nitrogen 19 mg/dL (7-18); Bicarbonate 30 mmol/L (21-32); Glucose Level 152 mg/dL (74-106); Potassium 3.3 mmol/L (3.5-5.1); Sodium Level 142 mmol/L (136-145)
[2020-09-29] MEDS ORDERED: POTASSIUM CL SA 10 MEQ TAB PO ONE (08:00)
[2020-09-29] MEDS: INSULIN LISPRO 100 UNIT/1 ML SQ SCH ×3 (08:00→17:00)
[2020-09-29] MEDS: CEFEPIME/SWI 1gm 10 ML IVP SCH (09:00)
[2020-09-29] MEDS: ENOXAPARIN 40 MG/0.4 ML SQ SCH (09:05)
[2020-09-29] MEDS: lisinopriL 20 MG TAB PO SCH (09:05)
[2020-09-29] MEDS: INSULIN -REGULAR HUMAN 50 UNIT/0.5 ML ML SQ SCH ×3 (09:06→16:30)
[2020-09-29] MEDS: AMLODIPINE 10 MG TAB PO SCH (09:06)
[2020-09-29] MEDS: FUROSEMIDE 40 MG/4 ML VIAL IV SCH (09:06)
[2020-09-29] MEDS: ATORVASTATIN 20 MG TAB PO SCH (09:06)
--- NOTE | 2020-09-29 12:58 | P.DS ---
Admission Date: 09/26/20 Discharge Date: 09/29/20 Disposition: ROUTINE DISCHARGE Discharge Condition: FAIR - Problems (1) Cellulitis of both lower extremities Current Visit: Yes Status: Acute (2) Venous stasis dermatitis of both lower extremities Current Visit: Yes Status: Acute (3) Venous stasis ulcers of both lower extremities Current Visit: Yes Status: Acute (4) Hypertension Current Visit: No Status: Acute (5) Hypothyroid Current Visit: No Status: Acute (6) Diabetes Current Visit: No Status: Acute Brief History of Present Illness: 64-year-old male with a past medical history significant for DM 2, hypertension, hypothyroidism presented to the emergency department with complaint of bilateral lower extremity redness and swelling that has been ongoing for the past 6 weeks. Patient reported that he had some dog scratch wounds on his bilateral extremities and thereafter patient started experiencing present symptoms which became worse over time. Patient reported that he followed up initially when symptoms started with his primary care doctor and was placed on doxycycline for 14 days. Patient denies relief of symptoms and patient followed up with his PCP the second time and had an extension of antibiotics administration for another 10 days. Patient indicated that his symptoms did not denita with antibiotics and when he followed up with his PCP the patient was referred to follow-up with his specialist. Patient went to see his gandy dancer and patient was referred to the hospital for failed outpatient antibiotics therapy. Hospital Course: He was admitted to the medical floor and started on broad-spectrum antibiotic- cefepime and vancomycin. His lower extremities were elevated to improve venous return and placed on IV Lasix for diuresis. The patient has significant bilateral lower extremity edema which improved with diuresis. Erythema was overall unchanged. Patient developed blisters which ruptured prior to admission. This is likely secondary to venous stasis ulcer formation. I doubt his lower extremity erythema his due to cellulitis but rather venous stasis dermatitis. He is clinically stable for discharge. Patient prescribed oral Levaquin to continue treatment for possible cellulitis. He is also prescribed oral Lasix to improve lower extremity edema. He will follow with [facility] for wound care and he is advised to keep his lower extremities elevated in the setting or lying position. Vital Signs/Physical Exam: Temp Pulse Resp BP Pulse Ox 98.0 F 76 18 145/69 H 95 09/29/20 08:00 09/29/20 09:05 09/29/20 08:00 09/29/20 09:05 09/29/20 08:00 General: Alert, In no apparent distress, Oriented x3 HEENT: Mucous membr. moist/pink Neck: JVD not distended Respiratory: Clear to auscultation bilaterally, Normal air movement Cardiovascular: Regular rate/rhythm, Normal S1 S2 Gastrointestinal: Soft and benign, Non-distended Musculoskeletal: No swelling Integumentary: Venous stasis ulcer (Bilateral lower extremities) Neurological: Normal strength at 5/5 x4 extr Lymphatics: No axilla or inguinal lymphadenopathy Laboratory Data at Discharge: WBC 6.30 K/uL (4.3-10.9) 09/29/20 05:25 Hgb 14.0 g/dL (13.6-17.9) 09/29/20 05:25 Hct 40.6 % (39.6-49.0) 09/29/20 05:25 Plt Count 216 K/uL (152-406) 09/29/20 05:25 PT 13.1 SECONDS (9.5-12.5) H 09/27/20 05:01 INR 1.14 09/27/20 05:01 APTT 27.7 SECONDS (24.3-36.9) 09/26/20 15:20 Sodium 142 mmol/L (136-145) 09/29/20 05:25 Potassium 3.3 mmol/L (3.5-5.1) L 09/29/20 05:25 BUN 19 mg/dL (7-18) H 09/29/20 05:25 Creatinine 0.81 mg/dL (0.55-1.3) 09/29/20 05:25 Glucose 152 mg/dL (74-106) H 09/29/20 05:25 Magnesium 2.0 mg/dL (1.8-2.4) 09/27/20 05:01 Total Bilirubin 1.4 mg/dL (0.2-1.0) H 09/26/20 15:20 AST 20 U/L (15-37) 09/26/20 15:20 ALT 33 U/L (12-78) 09/26/20 15:20 Alkaline Phosphatase 89 U/L (45-117) 09/26/20 15:20 Amylase 57 U/L (25-115) 09/26/20 15:20 Lipase 395 U/L (73-393) H 09/26/20 15:20 Home Medications: Insulin Aspart (Niacinamide) [Fiasp 100 Unit/ml Flextouch] 8 units SQ TID 04/14/19 Levothyroxine [Synthroid*] 50 mcg PO [id number] 04/14/19 lisinopriL [Lisinopril] 1 tab PO DAILY 04/14/19 Amlodipine [Norvasc*] 10 mg PO DAILY #30 tab 04/20/19 Atorvastatin Calcium 20 mg PO DAILY 04/26/19 Furosemide [Lasix] 40 mg PO DAILY #30 tab 09/29/20 Polyethylene Glycol 3350 [Miralax] 17 gm PO DAILY #15 powd.pack 09/29/20 Sennosides [Senna] 17.2 mg PO BID #120 tablet 09/29/20 levoFLOXacin [Levaquin] 750 mg PO DAILY #7 tab 09/29/20 New Medications: Furosemide [Lasix] 40 mg PO DAILY #30 tab levoFLOXacin [Levaquin] 750 mg PO DAILY #7 tab Polyethylene Glycol 3350 [Miralax] 17 gm PO DAILY #15 powd.pack Sennosides [Senna] 17.2 mg PO BID #120 tablet Physician Discharge Instructions: Clean wound with normal saline. Follow up with [facility] Care [facility] next week. Diet: ADA Activity: Ad candace Followup: Alexandre Hutchison MD [Primary Care Provider] - Time spent managing pt's care (in minutes): 36
[2020-09-29 13:22] VITALS: O2SAT 94
[2020-09-29 14:23] VITALS: BP 134/62; TEMP 98.1
[2020-09-29] MEDS ORDERED: VANCOMYCIN 2 GM in NA CHLORIDE 0.9% 500 ML IVPB SCH (15:00)
== END 2020-09-29 17:01 | disposition home or self-care (01) | DRG 603 ==
LOC: ER 11:31 → ERHOLD 16:29 → 2ND 21:03
PROVIDERS: ADMIT Internal Medicine; ATTEND Internal Medicine
DX: L03.116 Cellulitis of left lower limb (principal); Z68.41 Body mass index [BMI] 40.0-44.9, adult; L97.919 Non-pressure chronic ulcer of unspecified part of right lower leg with unspecified severity; L97.929 Non-pressure chronic ulcer of unspecified part of left lower leg with unspecified severity; I87.2 Venous insufficiency (chronic) (peripheral); I87.8 Other specified disorders of veins; E66.09 Other obesity due to excess calories; I10 Essential (primary) hypertension; L03.115 Cellulitis of right lower limb; E11.40 Type 2 diabetes mellitus with diabetic neuropathy, unspecified; E11.65 Type 2 diabetes mellitus with hyperglycemia; E78.2 Mixed hyperlipidemia; E03.9 Hypothyroidism, unspecified; L53.9 Erythematous condition, unspecified; I83.009 Varicose veins of unspecified lower extremity with ulcer of unspecified site; Z96.652 Presence of left artificial knee joint; Z79.4 Long term (current) use of insulin; Z79.890 Hormone replacement therapy; Z79.899 Other long term (current) drug therapy
CPT/HCPCS: 36415; 71045; 80048; 80076; 80202; 81003; 81015; 82150; 82550; 82553; 82947; 83605; 83690; 83735; 84132; 84145; 85025; 85610; 85730; 87040; 87070; 87205; 96365; 96375; 99285; J0692; J1650; J1815; J1940; J2543; J3370; J7040; J7050

== ENCOUNTER 2022-09-04 16:25 | Observation (INO) | payer MEDICARE ==
--- OUTSIDE RECORDS SUMMARY | 2022-09-04 16:28 | XMS REPORT | Continuity of Care Document ---
:1955 Author Organization [facility] t Address [address] [facility] [address] [place] [id number] Care Team Providers Name Role Phone Fred Attending Clinician Unavailable Hiral Gamez Attending Clinician RHONA SANTIAGO Attending Clinician Unavailable MD YFN Attending Clinician Unavailable Fred Admitting Clinician Unavailable Payers Payer Name Policy Type Policy Number Effective Date Expiration Date [facility] [id number] 2021 (MEDICARE 00:00:00 REPLACEMENT HMO) [facility] 2 [id number] 2020 00:00:00 Problems Condition Condition Condition Status Onset Resolution Last Treating Co mments Source Name Details Category Date Date Treatment Clinician Date Long-term Long-term Problem Active Salvatore campos current Current -13 Family use of Use of 00:00: Practic insulin Insulin 00 e Neuropathy Neuropathy Problem Active 2021-03 [facility] due to Due to 2-13 Family diabetes Diabetes 00:00: Practi c mellitus Mellitus 00 e Hyperlipid Hyperlipid Problem Active [facility] emia emia -13 Family 00:00: Practic 00 e Body mass Body Mass Problem Active Salvatore singere index 30+ Index 30+ 9-13 Fami ly - obesity - Obesity 00:00: Prac tic 00 e Morbid Morbid Problem Active [place] obesity Obesity - Family 00:00: Practic 00 e Hypertensi Hypertensi Problem Active [facility] ve ve -13 Family disorder Disorder 00:00: Practi c 00 e Osteoarthr Osteoarthr Problem Active [facility] itis of itis of 13 Family knee Knee 00:00: Practic 00 e Low back Low Back Problem Active Hieu villar pain Pain 9-13 Family 00:00: Practic 00 e 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 Social History Smoking Status Start Date Stop Date Source Never Smoker [facility] Medications Ordered Filled Start Stop Current Ordering Indication Dosage Frequency Signature Comments Components Source Medication Medication Date Date Medication? Clinician (SIG) Name Name BD Paulette 2nd BD Paulette 2nd No BD Paulette [place] Gen Pen Gen Pen 2nd Gen Family Needle 32 Needle 32 Pen Needle Practic gauge x gauge x 32 gauge x e " USE " USE " USE DIRECTED DIRECTED 4 TIMES 4 TIMES DIRECTED 4 DAILY DAILY TIMES DAILY Fish Oil Fish Oil No 1capsul Q1D Fish Oil [facility] 1,200 mg 1,200 mg e(s) 1,200 mg Fam thierry (144 mg-216 (144 mg-216 (144 P ractic mg) capsule mg) capsule mg-216 mg) e Take 1 Take 1 capsule capsule capsule Take 1 every day every day capsule by oral by oral every day route. route. by oral route. FreeStyle FreeStyle No FreeStyle [facility] Tony 2 Tony 2 Tony 2 Family Sensor kit Sensor kit Sensor kit Practic USE USE USE e DIRECTED DIRECTED DIRECTED DAILY BUT DAILY BUT DAILY BUT CHANGE CHANGE CHANGE EVERY 14 EVERY 14 EVERY 14 DAYS DAYS DAYS gabapentin gabapentin No gabapentin [facility] 100 mg 100 mg 100 mg Family capsule capsule capsule Practi c TAKE 1 TAKE 1 TAKE 1 e CAPSULE BY CAPSULE BY CAPSULE BY MOUTH TWICE MOUTH TWICE MOUTH A DAY FOR A DAY FOR TWICE A 30 DAYS 30 DAYS DAY FOR 30 DAYS levothyroxi levothyroxi No levothyrox [facility] ne 50 mcg ne 50 mcg ine 50 mcg Family tablet TAKE tablet TAKE tablet Practic 1 TABLET BY 1 TABLET BY TAKE 1 e MOUTH EVERY MOUTH EVERY TABLET BY DAY DAY MOUTH EVERY DAY losartan losartan No losartan Salvatore andres 100 100 100 Family mg-hydrochl mg-hydrochl mg-hydroch Practic orothiazide orothiazide lorothiazi e 25 mg 25 mg de 25 mg tablet TAKE tablet TAKE tablet 1 TABLET BY 1 TABLET BY TAKE 1 MOUTH EVERY MOUTH EVERY TABLET BY DAY FOR 90 DAY FOR 90 MOUTH DAYS DAYS EVERY DAY FOR 90 DAYS metformin metformin No 2 Q1D metformin [facility] ER 500 mg ER 500 mg ER 500 mg Family 24 hr 24 hr 24 hr Practic tablet,exte tablet,exte tablet,ext e nded nded ended release release release Take 2 Take 2 Take 2 tablets tablets tablets every day every day every day by oral by oral by oral route with route with route with meals for meals for meals for 90 days. 90 days. 90 days. metformin metformin No metformin [facility] ER 500 mg ER 500 mg ER 500 mg Family tablet,exte tablet,exte tablet,ext Practic nded nded ended e release 24 release 24 release 24 hr TAKE 2 hr TAKE 2 hr TAKE 2 TABLETS TABLETS TABLETS EVERY DAY EVERY DAY EVERY DAY BY ORAL BY ORAL BY ORAL ROUTE WITH ROUTE WITH ROUTE WITH MEALS FOR MEALS FOR MEALS FOR 90 DAYS. 90 DAYS. 90 DAYS. Novolog Novolog No Novolog [facility] FlexPen FlexPen FlexPen Family U-100 U-100 U-100 Practic Insulin Insulin Insulin e aspart 100 aspart 100 aspart 100 unit/mL (3 unit/mL (3 unit/mL (3 mL) mL) mL) subcutaneou subcutaneou subcutaneo s Give s Give us Give before before before meals for meals for meals for glucose glucose glucose >200 >200 >200 using CF using CF using CF 1:20: TDD 1:20: TDD 1:20: TDD 50 50 50 OneTouch OneTouch No OneTouch Salvatore andres Delica Plus Delica Plus Delica Family Lancet 33 Lancet 33 Plus Pract ic gauge USE gauge USE Lancet 33 e DIRECTED DIRECTED gauge USE 3 TIMES 3 TIMES DAILY DAILY DIRECTED 3 TIMES DAILY OneTouch OneTouch No OneTouch Salvatore andres Verio test Verio test Verio test Family strips USE strips USE strips USE Practic TO CHECK TO CHECK TO CHECK e GLUCOSE 3 GLUCOSE 3 GLUCOSE 3 TIMES A DAY TIMES A DAY TIMES A DAY Soliqua Soliqua No Soliqua [facility] 100/33 100 100/33 100 100/33 100 Family unit-33 unit-33 unit-33 Practi c mcg/mL mcg/mL mcg/mL e subcutaneou subcutaneou subcutaneo s insulin s insulin us insulin pen Give 34 pen Give 34 pen Give units in AM units in AM 34 units and and in AM and increase as increase as increase directed: directed: as TDD 60 TDD 60 directed: TDD 60 atorvastati atorvastati No atorvastat [facility] n 40 mg n 40 mg in 40 mg Famil y tablet TAKE tablet TAKE tablet Practic 1 TABLET BY 1 TABLET BY TAKE 1 e MOUTH 1 MOUTH 1 TABLET BY TIME EACH TIME EACH MOUTH 1 DAY. DAY. TIME EACH DAY. BD Paulette 2nd BD Paulette 2nd No BD Paulette [place] Gen Pen Gen Pen 2nd Gen Family Needle 32 Needle 32 Pen Needle Practic gauge x gauge x 32 gauge x e " USE 1 " USE 1 " USE EACH 5 EACH 5 1 EACH 5 (FIVE) (FIVE) (FIVE) TIMES A DAY TIMES A DAY TIMES A DAY Fish Oil Fish Oil No 1capsul Q1D Fish Oil [facility] 1,200 mg 1,200 mg e(s) 1,200 mg Fam thierry (144 mg-216 (144 mg-216 (144 P ractic mg) capsule mg) capsule mg-216 mg) e Take 1 Take 1 capsule capsule capsule Take 1 every day every day capsule by oral by oral every day route. route. by oral route. levothyroxi levothyroxi No levothyrox [facility] ne 50 mcg ne 50 mcg ine 50 mcg Family tablet TAKE tablet TAKE tablet Practic 1 TABLET BY 1 TABLET BY TAKE 1 e MOUTH EVERY MOUTH EVERY TABLET BY DAY IN THE DAY IN THE MOUTH MORNING ON MORNING ON EVERY DAY EMPTY EMPTY IN THE STOMACH STOMACH MORNING ON EMPTY STOMACH losartan losartan No losartan Salvatore andres 100 100 100 Family mg-hydrochl mg-hydrochl mg-hydroch Practic orothiazide orothiazide lorothiazi e 25 mg 25 mg de 25 mg tablet TAKE tablet TAKE tablet 1 TABLET BY 1 TABLET BY TAKE 1 MOUTH EVERY MOUTH EVERY TABLET BY DAY DAY MOUTH EVERY DAY metformin metformin No 2 Q1D metformin [facility] ER 500 mg ER 500 mg ER 500 mg Family 24 hr 24 hr 24 hr Practic tablet,exte tablet,exte tablet,ext e nded nded ended release release release Take 2 Take 2 Take 2 tablets tablets tablets every day every day every day by oral by oral by oral route with route with route with meals for meals for meals for 30 days. 30 days. 30 days. Novolog Novolog No Novolog [facility] Flexpen Flexpen Flexpen Family U-100 U-100 U-100 Practic Insulin Insulin Insulin e aspart 100 aspart 100 aspart 100 unit/mL (3 unit/mL (3 unit/mL (3 mL) mL) mL) subcutaneou subcutaneou subcutaneo s Give s Give us Give before before before meals for meals for meals for glucose glucose glucose >200 >200 >200 using CF using CF using CF 1:20: TDD 1:20: TDD 1:20: TDD 50 50 50 OneTouch OneTouch No 3strip( Q1D OneTouch [facility] Verio test Verio test s) Verio test Family strips Take strips Take strips Practic 3 strips 3 strips Take 3 e every day every day strips by miscell. by miscell. every day route for route for by 90 days. 90 days. miscell. route for 90 days. Soliqua Soliqua No Soliqua [facility] 100/33 100 100/33 100 100/33 100 Family unit-33 unit-33 unit-33 Practi c mcg/mL mcg/mL mcg/mL e subcutaneou subcutaneou subcutaneo s insulin s insulin us insulin pen Give 16 pen Give 16 pen Give units in AM units in AM 16 units and and in AM and increase as increase as increase directed: directed: as TDD 60 TDD 60 directed: TDD 60 atorvastati atorvastati No atorvastat [facility] n 40 mg n 40 mg in 40 mg Famil y tablet TAKE tablet TAKE tablet Practic 1 TABLET BY 1 TABLET BY TAKE 1 e MOUTH 1 MOUTH 1 TABLET BY TIME EACH TIME EACH MOUTH 1 DAY. DAY. TIME EACH DAY. BD Paulette 2nd BD Paulette 2nd No BD Paulette [facility] Gen Pen Gen Pen 2nd Gen Family Needle 32 Needle 32 Pen Needle Practic gauge x gauge x 32 gauge x e " USE 1 " USE 1 " USE EACH 5 EACH 5 1 EACH 5 (FIVE) (FIVE) (FIVE) TIMES A DAY TIMES A DAY TIMES A DAY Fish Oil Fish Oil No 1capsul Q1D Fish Oil [facility] 1,200 mg 1,200 mg e(s) 1,200 mg Fam thierry (144 mg-216 (144 mg-216 (144 P ractic mg) capsule mg) capsule mg-216 mg) e Take 1 Take 1 capsule capsule capsule Take 1 every day every day capsule by oral by oral every day route. route. by oral route. FreeStyle FreeStyle No FreeStyle [facility] Tony 2 Tony 2 Tony 2 Family Sensor kit Sensor kit Sensor kit Practic USE USE USE e DIRECTED DIRECTED DIRECTED DAILY BUT DAILY BUT DAILY BUT CHANGE CHANGE CHANGE EVERY 14 EVERY 14 EVERY 14 DAYS DAYS DAYS levothyroxi levothyroxi No levothyrox [facility] ne 50 mcg ne 50 mcg ine 50 mcg Family tablet TAKE tablet TAKE tablet Practic 1 TABLET BY 1 TABLET BY TAKE 1 e MOUTH EVERY MOUTH EVERY TABLET BY DAY IN THE DAY IN THE MOUTH MORNING ON MORNING ON EVERY DAY EMPTY EMPTY IN THE STOMACH STOMACH MORNING ON EMPTY STOMACH losartan losartan No losartan Salvatore andres 100 100 100 Family mg-hydrochl mg-hydrochl mg-hydroch Practic orothiazide orothiazide lorothiazi e 25 mg 25 mg de 25 mg tablet TAKE tablet TAKE tablet 1 TABLET BY 1 TABLET BY TAKE 1 MOUTH EVERY MOUTH EVERY TABLET BY DAY DAY MOUTH EVERY DAY metformin metformin No 2 Q1D metformin [facility] ER 500 mg ER 500 mg ER 500 mg Family 24 hr 24 hr 24 hr Practic tablet,exte tablet,exte tablet,ext e nded nded ended release release release Take 2 Take 2 Take 2 tablets tablets tablets every day every day every day by oral by oral by oral route with route with route with meals for meals for meals for 30 days. 30 days. 30 days. metformin metformin No metformin [facility] ER 500 mg ER 500 mg ER 500 mg Family tablet,exte tablet,exte tablet,ext Practic nded nded ended e release 24 release 24 release 24 hr TAKE 2 hr TAKE 2 hr TAKE 2 TABLETS TABLETS TABLETS EVERY DAY EVERY DAY EVERY DAY WITH MEALS WITH MEALS WITH MEALS Novolog Novolog No Novolog [facility] Flexpen Flexpen Flexpen Family U-100 U-100 U-100 Practic Insulin Insulin Insulin e aspart 100 aspart 100 aspart 100 unit/mL (3 unit/mL (3 unit/mL (3 mL) mL) mL) subcutaneou subcutaneou subcutaneo s Give s Give us Give before before before meals for meals for meals for glucose glucose glucose >200 >200 >200 using CF using CF using CF 1:20: TDD 1:20: TDD 1:20: TDD 50 50 50 OneTouch OneTouch No OneTouch Salvatore andres Delica Plus Delica Plus Delica Family Lancet 33 Lancet 33 Plus Pract ic gauge USE gauge USE Lancet 33 e DIRECTED DIRECTED gauge USE 3 TIMES 3 TIMES DAILY DAILY DIRECTED 3 TIMES DAILY OneTouch OneTouch No 3strip( Q1D OneTouch [facility] Verio test Verio test s) Verio test Family strips Take strips Take strips Practic 3 strips 3 strips Take 3 e every day every day strips by miscell. by miscell. every day route for route for by 90 days. 90 days. miscell. route for 90 days. Soliqua Soliqua No Soliqua [facility] 100/33 100 100/33 100 100/33 100 Family unit-33 unit-33 unit-33 Practi c mcg/mL mcg/mL mcg/mL e subcutaneou subcutaneou subcutaneo s insulin s insulin us insulin pen GIVE 16 pen GIVE 16 pen GIVE UNITS IN UNITS IN 16 UNITS THE MORNING THE MORNING IN THE AND AND MORNING INCREASE INCREASE AND DIRECTED: DIRECTED: INCREASE TDD 60 TDD 60 DIRECTED: TDD 60 amoxicillin amoxicillin No amoxicilli [facility] 500 mg 500 mg n 500 mg Family capsule capsule capsule Practi c e atorvastati atorvastati No atorvastat [facility] n 40 mg n 40 mg in 40 mg Famil y tablet TAKE tablet TAKE tablet Practic 1 TABLET BY 1 TABLET BY TAKE 1 e MOUTH 1 MOUTH 1 TABLET BY TIME EACH TIME EACH MOUTH 1 DAY. DAY. TIME EACH DAY. BD Paulette 2nd BD Paulette 2nd No BD Paulette [place] Gen Pen Gen Pen 2nd Gen Family Needle 32 Needle 32 Pen Needle Practic gauge x gauge x 32 gauge x e " USE 1 " USE 1 " USE EACH 5 EACH 5 1 EACH 5 (FIVE) (FIVE) (FIVE) TIMES A DAY TIMES A DAY TIMES A DAY Fish Oil Fish Oil No 1capsul Q1D Fish Oil [facility] 1,200 mg 1,200 mg e(s) 1,200 mg Fam thierry (144 mg-216 (144 mg-216 (144 P ractic mg) capsule mg) capsule mg-216 mg) e Take 1 Take 1 capsule capsule capsule Take 1 every day every day capsule by oral by oral every day route. route. by oral route. FreeStyle FreeStyle No FreeStyle [facility] Tony 2 Tony 2 Tony 2 Family Sensor kit Sensor kit Sensor kit Practic USE USE USE e DIRECTED DIRECTED DIRECTED DAILY BUT DAILY BUT DAILY BUT CHANGE CHANGE CHANGE EVERY 14 EVERY 14 EVERY 14 DAYS DAYS DAYS levothyroxi levothyroxi No levothyrox [facility] ne 50 mcg ne 50 mcg ine 50 mcg Family tablet TAKE tablet TAKE tablet Practic 1 TABLET BY 1 TABLET BY TAKE 1 e MOUTH EVERY MOUTH EVERY TABLET BY DAY IN THE DAY IN THE MOUTH MORNING ON MORNING ON EVERY DAY EMPTY EMPTY IN THE STOMACH STOMACH MORNING ON EMPTY STOMACH losartan losartan No losartan Salvatore andres 100 100 100 Family mg-hydrochl mg-hydrochl mg-hydroch Practic orothiazide orothiazide lorothiazi e 25 mg 25 mg de 25 mg tablet TAKE tablet TAKE tablet 1 TABLET BY 1 TABLET BY TAKE 1 MOUTH EVERY MOUTH EVERY TABLET BY DAY DAY MOUTH EVERY DAY metformin metformin No 2 Q1D metformin [facility] ER 500 mg ER 500 mg ER 500 mg Family 24 hr 24 hr 24 hr Practic tablet,exte tablet,exte tablet,ext e nded nded ended release release release Take 2 Take 2 Take 2 tablets tablets tablets every day every day every day by oral by oral by oral route with route with route with meals for meals for meals for 90 days. 90 days. 90 days. metformin metformin No metformin [place] ER 500 mg ER 500 mg ER 500 mg Family tablet,exte tablet,exte tablet,ext Practic nded nded ended e release 24 release 24 release 24 hr TAKE 2 hr TAKE 2 hr TAKE 2 TABLETS TABLETS TABLETS EVERY DAY EVERY DAY EVERY DAY WITH MEALS WITH MEALS WITH MEALS Novolog Novolog No Novolog [facility] Flexpen Flexpen Flexpen Family U-100 U-100 U-100 Practic Insulin Insulin Insulin e aspart 100 aspart 100 aspart 100 unit/mL (3 unit/mL (3 unit/mL (3 mL) mL) mL) subcutaneou subcutaneou subcutaneo s Give s Give us Give before before before meals for meals for meals for glucose glucose glucose >200 >200 >200 using CF using CF using CF 1:20: TDD 1:20: TDD 1:20: TDD 50 50 50 OneTouch OneTouch No OneTouch Salvatore andres Delica Plus Delica Plus Delica Family Lancet 33 Lancet 33 Plus Pract ic gauge USE gauge USE Lancet 33 e DIRECTED DIRECTED gauge USE 3 TIMES 3 TIMES DAILY DAILY DIRECTED 3 TIMES DAILY OneTouch OneTouch No OneTouch Salvatore andres Verio test Verio test Verio test Family strips USE strips USE strips USE Practic TO CHECK TO CHECK TO CHECK e GLUCOSE 3 GLUCOSE 3 GLUCOSE 3 TIMES A DAY TIMES A DAY TIMES A DAY Kathleen Wang No Kathleen Gomez e 100/33 100 100/33 100 100/33 100 Family unit-33 unit-33 unit-33 Practi c mcg/mL mcg/mL mcg/mL e subcutaneou subcutaneou subcutaneo s insulin s insulin us insulin pen Give 34 pen Give 34 pen Give units in AM units in AM 34 units and and in AM and increase as increase as increase directed: directed: as TDD 60 TDD 60 directed: TDD 60 atorvastati atorvastati No atorvastat [facility] n 40 mg n 40 mg in 40 mg Famil y tablet TAKE tablet TAKE tablet Practic 1 TABLET BY 1 TABLET BY TAKE 1 e MOUTH 1 MOUTH 1 TABLET BY TIME EACH TIME EACH MOUTH 1 DAY. DAY. TIME EACH DAY. Vital Signs Vital Name Observation Time Observation Value Comments Source BP Diastolic 2022-08-26 00:00:00 66 mm[Hg] [facility] Height 2022-08-26 00:00:00 75 [in_i] [facility] BMI (Body Mass 2022-08-26 00:00:00 39.7 kg/m2 [facility] e Family Index) Practice BP Systolic 2022-08-26 00:00:00 101 mm[Hg] [facility] Body Weight 2022-08-26 00:00:00 318 [lb_av] [facility] BP Diastolic 2022-02-25 00:00:00 73 mm[Hg] [facility] Height 2022-02-25 00:00:00 75 [in_i] [facility] BMI (Body Mass 2022-02-25 00:00:00 [facility] BP Systolic 2022-02-25 00:00:00 121 mm[Hg] [facility] Body Weight 2022-02-25 00:00:00 307 [lb_av] [facility] Practice BP Diastolic 2021-12-24 00:00:00 76 mm[Hg] [facility] Height 2021-12-24 00:00:00 75 [in_i] [facility] BMI (Body Mass 2021-12-24 00:00:00 38.4 kg/m2 [facility] Index) Practice BP Systolic 2021-12-24 00:00:00 119 mm[Hg] [facility] Body Weight 2021-12-24 00:00:00 307 [lb_av] [facility] BP Diastolic 2021-11-26 00:00:00 62 mm[Hg] [facility] Height 2021-11-26 00:00:00 75 [in_i] [facility] BMI (Body Mass 2021-11-26 00:00:00 38.7 kg/m2 [facility] Index) Practice BP Systolic 2021-11-26 00:00:00 95 mm[Hg] [facility] Body Weight 2021-11-26 00:00:00 310 [lb_av] [facility] Procedures This patient has no known procedures. Plan of Care Planned Activity Planned Date Details Comments Source Diagnostic Test 2022-08-26 glucose, fingerstick, Salvatore andres [place] Pending 00:00:00 blood [code = Practice glucose, fingerstick, blood] Diagnostic Test 2022-08-26 hemoglobin A1C, [facility] Pending 00:00:00 fingerstick [code = Practice hemoglobin A1C, fingerstick] Future Appointment 2023-02-25 Glenn Mccrary, Nia [facility] 00:00:[address]; Practice [address], [place] [address] Future Appointment 2023-02-24 Glenn Mccrary, Nia [facility] 14:00:[address]; Practice [address], [place] [address] Encounters Start End Encounter Admission Attending Care Care Encounter Source Date/Time Date/Time Type Type Clinicians Facility Department ID 2022-08-26 2022-08-26 Outpatient Daniel_T VFP VFP [id number] [address] [place] [address] 00:00:00 00:00:00 [id number] Family Practic e 2022-08-26 2022-08-26 Outpatient Daniel_T VFP VFP [id number] [address] [place] [address] 00:00:00 00:00:00 [id number] Family Practic e 2022-08-26 2022-08-26 Glenn VFP [place] - [id number] V illage 00:00:00 00:00:00 Victor M [facility] Quita Mccrary - Milton mendiola MD: [id number] [place] - e Shadow [email or web address] Sanz [facility], [address] [address] , Ph. 2022-05-06 2022-05-06 Outpatient Daniel_T VFP VFP [id number] [address] [place] [address] 00:00:00 00:00:00 [id number] Family Practic e 2022-04-03 2022-04-03 MONTSERRAT Gamez [id number] 15:30:00 16:30:00 [id number] [facility] [id number] 2022-02-25 2022-02-25 Outpatient Daniel_T VFP VFP [id number] [address] [place] [address] 00:00:00 00:00:00 [id number] Family Practic e 2022-02-25 2022-02-25 Outpatient Hermann_T VFP VFP [id number] [address] [place] [address] 00:00:00 00:00:00 [id number] Family Kenyatta e 2022-02-25 2022-02-25 Glenn VFP [place] - [id number] V illage 00:00:00 00:00:00 [facility] Family MccraryQuita - Pracnisha mendiola MD: [id number] [place] - e Shadow [facility], [address] [place] [id number] , Ph. 2021-12-24 2021-12-24 Outpatient Hermann_T VFP VFP [id number] [address] [place] [address] 00:00:00 00:00:00 [id number] Family Kenyatta e 2021-12-24 2021-12-24 Glenn VFP [place] - [id number] V illage 00:00:00 00:00:00 [facility] Family MccraryQuita - Pracnisha mendiola MD: [id number] [place] - e Shadow VM_Stevie Sanz [facility], [address], [place] [address] , Ph. 2021-12-10 2021-12-10 Outpatient Daniel_T VFP VFP [id number] [address] [place] [address] 00:00:00 00:00:00 [id number] Family Practic e 2021-11-26 2021-11-26 Outpatient Jetel_T VFP VFP [id number] [address] [place] [address] 00:00:00 00:00:00 [id number] Family Practic e 2021-11-26 2021-11-26 Glenn VFP [place] - [id number] V illage 00:00:00 00:00:00 [facility] Family Mccrary Quita - Milton mendiola MD: [id number] [place] - e Shadow VM_HOU_[facility], [address], [place] [address] , Ph. 2021-11-25 2021-11-25 Outpatient Daniel_T VFP VFP [id number] [address] [place] [address] 00:00:00 00:00:00 [id number] Family Practic e 2021-10-25 2021-10-25 Outpatient Jetel_T VFP VFP [id number] [address] [place] [address] 00:00:00 00:00:00 [id number] Family Practic e 2021-09-27 2021-09-27 Outpatient DMG DMG [id number] [facility] 08:25:00 08:25:00 [id number] Medica l Group 2021-09-27 2021-09-27 Outpatient DMG DMG [id number] [facility] 00:00:00 00:00:00 [id number] Medica l Group 2021-09-18 2021-09-18 Outpatient DMG DMG [id number] [facility] 09:00:00 09:00:00 [id number] Medica l Group 2020-12-13 2020-12-13 Outpatient RHONA SANTIAGO [id number] Jenifer 08:00:00 08:00:00 Byron sánchez 2020-10-10 2020-10-10 Outpatient LUCY ESPINOZA [id number] Jenifer 00:00:00 00:00:00 MD Byron LEWIS 2020-10-02 2020-10-02 Outpatient RHONA SANTIAGO [id number] Jenifer 00:00:00 00:00:00 Seybol d 2020-09-27 2020-09-27 Outpatient RHONA SANTIAGO EJNIFER [id number] Jenifer 00:00:00 00:00:00 Seybol d 2020-09-11 2020-09-11 Outpatient RHONA SANTIAGO JENIFER [id number] Jenifer 08:00:00 08:00:00 Seybol d 2020-08-27 2020-08-27 Outpatient RHONA SANTIAGO JENIFER [id number] Jenifer 09:00:00 09:00:00 Seybol d Results Test Description Test Time Test Comments Results Result Comments Source Hemoglobin A1c measurement device panel 2022-08-26 13:57:03 Test Item Value Reference Range Interpretation Comme nts Hemoglobin A1c/Hemoglobin.total in Blood (test code = 4548-4) 7.1 % 4.0-6.4 [facility] [id number] 13:50:25 Test Item Value Reference Range Interpretation Comments Blood Glucose: mg/dl (test code = Blood 109 Glucose: mg/dl) [facility] [id number] 13:27:15 Test Item Value Reference Range Interpretation Comments Hemoglobin A1c/Hemoglobin.total in 7.0 % 5.7-6.4 Blood (test code = 4548-4) [facility] Capillary [id number] 13:25:00 Test Item Value Reference Range Interpretation Comments Blood Glucose: mg/dl (test code = Blood 110 Glucose: mg/dl) [facility] [Mass/volume] in Capillary [id number] 13:33:59 Test Item Value Reference Range Interpretation Comments Blood Glucose: mg/dl (test code = Blood 134 Glucose: mg/dl) [facility] [id number] 13:17:22 Test Item Value Reference Range Interpretation Comments Hemoglobin A1c/Hemoglobin.total in 10.1 % 5.7-6.4 Blood (test code = 4548-4) [facility] [id number] 13:17:22 Test Item Value Reference Range Interpretation Comments Hemoglobin A1c/Hemoglobin.total in 10.1 % 5.7-6.4 Blood (test code = 4548-4) [facility] [id number] 13:17:22 Test Item Value Reference Range Interpretation Comments Hemoglobin A1c/Hemoglobin.total in 10.1 % 5.7-6.4 Blood (test code = 4548-4) [facility]] in Capillary [id number] 13:14:23 Test Item Value Reference Range Interpretation Comments Blood Glucose: mg/dl (test code = Blood 93 Glucose: mg/dl) [facility] [id number] 13:14:23 Test Item Value Reference Range Interpretation Comments Blood Glucose: mg/dl (test code = Blood 93 Glucose: mg/dl) [facility] in Capillary [id number] 13:14:23 Test Item Value Reference Range Interpretation Comments Blood Glucose: mg/dl (test code = Blood 93 Glucose: mg/dl) [facility]
--- NOTE | 2022-09-04 17:32 | ER ---
Nurse's Notes [facility] Name: Vance Alfaro Age: 66 yrs Sex: Male : 1955 Arrival Date: 09/04/2022 Time: 16:25 Bed 2 Private MD: Chandra Jean-Baptiste E Diagnosis: Cellulitis of left toe Presentation: 09/04 16:32 Chief complaint: Patient states: he noticed redness to his big toe on his left foot cm10 onset today. pt states that he noticed it this morning and over the last 3 hours his leg has now swollen. Patient has a PMHx of diabetes. Coronavirus screen: Vaccine status: Patient reports receiving the 2nd dose of the covid vaccine. Client denies travel out of the [place] in the last 14 days. At this time, the client does not indicate any symptoms associated with coronavirus-19. Ebola Screen: No symptoms or risks identified at this time. Initial Sepsis Screen: Does the patient meet any 2 criteria? No. Patient's initial sepsis screen is negative. Does the patient have a suspected source of infection? Yes: Skin breakdown/wound. Risk Assessment: Do you want to hurt yourself or someone else? Patient reports no desire to harm self or others. Onset of symptoms was September 04, 2022. 16:32 Method Of Arrival: Ambulatory cm10 16:32 Acuity: MIKAYLA 3 cm10 Triage Assessment: 16:36 General: Appears in no apparent distress. comfortable, Behavior is calm, cooperative. cm10 Pain: Denies pain. Neuro: No deficits noted. Level of Consciousness is awake, alert, Oriented to person, place, time, situation. Respiratory: No deficits noted. Airway is patent Respiratory effort is even, unlabored, Respiratory pattern is regular, symmetrical. Historical: - Allergies: 16:35 No Known Allergies; cm10 - PMHx: 16:35 Diabetes - IDDM; Hypertension; Hypothyroidism; cm10 - Immunization history:: Adult Immunizations unknown. - Social history:: Smoking status: Patient reports use of chewing tobacco. Screenin:39 [facility] ED Fall Risk Assessment (Adult) History of falling in the last 3 months, ld1 including since admission No falls in past 3 months (0 pts). Abuse screen: Denies threats or abuse. Denies injuries from another. Nutritional screening: No deficits noted. Tuberculosis screening: No symptoms or risk factors identified. Assessment: 18:38 General: Appears in no apparent distress. comfortable, Behavior is calm, cooperative, ld1 appropriate for age. Pain: Denies pain. Neuro: Level of Consciousness is awake, alert, obeys commands, Oriented to person, place, time, situation, Appropriate for age. Cardiovascular: Capillary refill < 3 seconds Patient's skin is warm and dry. Rhythm is sinus rhythm. Respiratory: Airway is patent Respiratory effort is even, unlabored. GI: Abdomen is round non-distended. : No signs and/or symptoms were reported regarding the genitourinary system. EENT: No signs and/or symptoms were reported regarding the EENT system. Derm: Wound noted medial aspect of left toes. Musculoskeletal: No signs and/or symptoms reported regarding the musculoskeletal system. 19:36 Reassessment: Patient appears in no apparent distress at this time. Patient and/or kl family updated on plan of care and expected duration. Pain level reassessed. Patient is alert, oriented x 3, equal unlabored respirations, skin warm/dry/pink. Patient states symptoms have improved. Vital Signs: 16:32 BP 205 / 99; Pulse 97; Resp 16; Temp 99.2(O); Pulse Ox 98% on R/A; Weight 144.24 kg cm10 (R); Height 6 ft. 3 in. (R); Pain 0/10; 17:36 BP 159 / 89; Pulse 85; Resp 18; Pulse Ox 98% on R/A; ld1 18:38 BP 165 / 55; Pulse 87; Resp 18; Pulse Ox 99% on R/A; ld1 19:37 BP 123 / 77; Pulse 79; Resp 18; Pulse Ox 98% ; kl 16:32 Body Mass Index 39.75 (144.24 kg, 190.5 cm) cm10 16:32 Pain Scale: Adult cm10 ED Course: 16:26 Patient arrived in ED. mr 16:26 Chandra Jean-Baptiste MD is Private Physician. mr 16:35 Triage completed. cm10 16:36 Fish Dunbar MD is Attending Physician. kdr 16:36 Arm band placed on Patient placed in waiting room. cm10 17:30 Chirag Mcdonnell MD is Hospitalizing Provider. kdr 17:52 Blood Culture Adult (2) Sent. ld1 17:52 CBC with Diff Sent. ld1 17:53 Foot Left 3 View XRAY In Process Unspecified. EDMS 18:17 Blood Culture Adult (2) Sent. ld1 18:24 Sushila Goodman, RN is Primary Nurse. ld1 18:39 Patient has correct armband on for positive identification. Placed in gown. Bed in low ld1 position. Call light in reach. Side rails up X2. library monitor on. Pulse ox on. NIBP on. Door closed. Noise minimized. Warm blanket given. 18:39 No provider procedures requiring assistance completed. Inserted saline lock: 20 gauge ld1 in left antecubital area, using aseptic technique. Blood collected. 19:26 Primary Nurse role handed off by Sushila Goodman, RN rv1 19:38 Patient admitted, IV remains in place. kl Administered Medications: 17:52 Not Given (Physician Discretion): Metoprolol IVP 5 mg IVP every 5 minutes; Hold for SBP ld1 < 100 or HR < 60. x3 17:53 Drug: Piperacillin-Tazobactam IVPB 3.375 grams Route: IVPB; Infused Over: 60 mins; ld1 Site: left antecubital; 18:24 Drug: vancoMYCIN IVPB 1.5 grams Route: IVPB; Rate: calculated rate; Site: left ld1 antecubital; Medication: 18:39 VIS not applicable for this client. ld1 Outcome: 17:30 Decision to Hospitalize by Provider. kdr 19:37 Admitted to Tele accompanied by [facility], via wheelchair, room 406, with chart, Report kl called to Tamika HENRIQUEZ 19:37 Condition: stable 19:37 Discharge instructions given to patient, family, Instructed on the need for admit, Demonstrated understanding of instructions, follow-up care. 20:07 Patient left the ED. rv Signatures: Dispatcher [employer] EDLouise Rivas RN RN kl Rittger, Kevin, MD MD kdr Rivera, Mary mr Vicente, Ronaldo, RN RN rv Sushila Goodman RN RN ld1 Venecia Robles rv1 Nydia Sargent RN RN cm10
--- NOTE | 2022-09-04 17:32 | EDPHYS ---
Physician Documentation [facility] Name: Vance Alfaro Age: 66 yrs Sex: Male : 1955 Arrival Date: 09/04/2022 Time: 16:25 Bed 2 Private MD: Chandra Jean-Baptiste E ED Physician Fish Dunbar HPI: 09/04 17:26 This 66 yrs old Male presents to ER via Ambulatory with complaints of Feet Swelling, kdr Wound Infection. 17:26 Patient noted this morning that he had swelling to his left great toe. He had something kdr similar back in 2019 on his right toe. He also noted that through the day his left foot has swollen up through the ankle. Patient is a diabetic. He denies any pain or fever. He has no other associated symptoms at this time. Patient does appear to have a 1-1/2 x 2 to 2-1/2 cm blistered area on the medial aspect of his left great toe. The great toe is swollen in general and erythematous without any obvious drainage at this time.. Onset: The symptoms/episode began/occurred this morning. Severity of symptoms: At their worst the symptoms were mild moderate just prior to arrival, in the emergency department the symptoms are unchanged. The patient has experienced a previous episode, 2020 he had the similar problem on the right great toe. The patient has not recently seen a physician. Historical: - Allergies: 16:35 No Known Allergies; cm10 - PMHx: 16:35 Diabetes - IDDM; Hypertension; Hypothyroidism; cm10 - Immunization history:: Adult Immunizations unknown. - Social history:: Smoking status: Patient reports use of chewing tobacco. ROS: 17:26 Constitutional: Negative for fever, chills, and weight loss, Eyes: Negative for injury, kdr pain, redness, and discharge, ENT: Negative for injury, pain, and discharge. 17:26 Skin: Positive for cellulitis, discoloration, erythema, of the lateral aspect of left toes, dorsum of left foot, left first toe, medial aspect of left toes and Left first toenail. Exam: 17:26 Constitutional: This is a well developed, well nourished patient who is awake, alert, kdr and in no acute distress. 17:26 Skin: cellulitis, that is mild, that is moderate, confluent, on the lateral aspect of left toes, dorsum of left foot, left first toe, medial aspect of left toes and Left first toenail. Vital Signs: 16:32 BP 205 / 99; Pulse 97; Resp 16; Temp 99.2(O); Pulse Ox 98% on R/A; Weight 144.24 kg cm10 (R); Height 6 ft. 3 in. (R); Pain 0/10; 17:36 BP 159 / 89; Pulse 85; Resp 18; Pulse Ox 98% on R/A; ld1 18:38 BP 165 / 55; Pulse 87; Resp 18; Pulse Ox 99% on R/A; ld1 19:37 BP 123 / 77; Pulse 79; Resp 18; Pulse Ox 98% ; kl 16:32 Body Mass Index 39.75 (144.24 kg, 190.5 cm) cm10 16:32 Pain Scale: Adult cm10 MDM: 17:26 Data reviewed: vital signs, nurses notes, old medical records, radiologic studies. ED kdr course: Patient was stable in the ED and admitted to the floor in fair condition. 17:30 Patient medically screened. [facility] 09/04 17:26 Order name: CBC with Diff; Complete Time: 18:21 kdr 09/04 17:26 Order name: Blood Culture Adult (2) kdr 09/04 17:46 Order name: CMP; Complete Time: 18:40 kdr 09/04 17:48 Order name: Ptt, Activated; Complete Time: 18:40 ld1 09/04 18:20 Order name: Wound Culture la1 09/04 17:26 Order name: Foot Left 3 View XRAY; Complete Time: 18:21 kdr 09/04 17:26 Order name: EKG; Complete Time: 17:26 kdr 09/04 17:26 Order name: Cardiac monitoring; Complete Time: 17:26 kdr 09/04 17:26 Order name: EKG - Nurse/Tech; Complete Time: 17:26 kdr 09/04 17:26 Order name: IV Saline Lock; Complete Time: 17:36 kdr 09/04 17:26 Order name: Labs collected and sent; Complete Time: 17:36 kdr 09/04 17:26 Order name: O2 Per Protocol; Complete Time: 17:26 kdr 09/04 17:26 Order name: O2 Sat Monitoring; Complete Time: 17:26 kdr Administered Medications: 17:52 Not Given (Physician Discretion): Metoprolol IVP 5 mg IVP every 5 minutes; Hold for SBP ld1 < 100 or HR < 60. x3 17:53 Drug: Piperacillin-Tazobactam IVPB 3.375 grams Route: IVPB; Infused Over: 60 mins; ld1 Site: left antecubital; 18:24 Drug: vancoMYCIN IVPB 1.5 grams Route: IVPB; Rate: calculated rate; Site: left ld1 antecubital; Disposition Summary: 09/04/22 17:30 Hospitalization Ordered Hospitalization Status: Inpatient Admission kdr Provider: Chirag Mcdonnell Location: Telemetry/MedSurg (Inpatient) kdr Condition: Fair kdr Problem: new kdr Symptoms: are unchanged kdr Bed/Room Type: Standard kdr Room Assignment: 406(09/04/22 19:31) cg Diagnosis - Cellulitis of left toe kdr Forms: - Medication Reconciliation Form kdr - SBAR form kdr Signatures: Dispatcher [employer] EDFish Loja MD MD kdr Britton Manning FNP-C [employer] Ju Landeros, RN RN cg Sushila Goodman RN RN ld1 Nydia Sargent RN RN cm10 Corrections: (The following items were deleted from the chart) 19:31 17:30 kdr cg
[2022-09-04] MEDS ORDERED: NA CHLORIDE 0.9% 100 ML ONE (17:40)
[2022-09-04] MEDS ORDERED: PIPERACIL/TAZO 3.375 GM VIAL IV ONE (17:40)
[2022-09-04] MEDS ORDERED: METOPROLOL TARTRATE 5 MG/5 ML INJ IV ONE (17:40)
[2022-09-04 17:55] LABS: Absolute Lymphocytes (CBC) 1.6 K/uL (0.7-4.9); Hematocrit 40.4 % (39.6-49.0); Lymphocytes % 19.4 % (15.3-44.8); MCV 87.9 fL (80-100)
[2022-09-04] MEDS ORDERED: VANCOMYCIN 1.5 GM in NA CHLORIDE 0.9% 500 ML IVPB ONE (18:00)
--- NOTE | 2022-09-04 18:04 | RAD REPORT ---
EXAM DESCRIPTION: RAD - Foot Left 3 View - 09/04/2022 5:51 pm CLINICAL HISTORY: SWELLING COMPARISON: <Comparisons> FINDINGS: Soft tissue swelling is seen affecting the great toe. No finding to suspect osteomyelitis. No fracture seen. Small calcaneal spurs.
[2022-09-04 18:21] LABS: Albumin 3.9 g/dL (3.4-5.0); Bilirubin Total 0.5 mg/dL (0.2-1.0); Protein, Total 7.6 g/dL (6.4-8.2)
--- NOTE | 2022-09-04 19:12 | P.HP ---
Certification for Inpatient Patient admitted to: Inpatient With expected LOS: >2 Midnights Patient will require the following post-hospital care: None Practitioner: I am a practitioner with admitting privileges, knowledge of patient current condition, hospital course, and medical plan of care. Services: Services provided to patient in accordance with Admission requirements found in Title 42 Section 412.3 of the Code of Federal Regulations Patient History Date of Service: 09/04/22 Reason for admission: Cellulitis LLE History of Present Illness: 66-year-old male with history of insulin-dependent diabetes, hypertension, hypothyroidism, hyperlipidemia presents emergency department chief complaint of infection of the left foot. He reports he noticed the inflammation/swelling today, also noticed an ulceration to the medial aspect of his left great toe. He has had previous osteomyelitis in the other foot. He was evaluated in the emergency department blood cultures were obtained, white blood cell count within normal limits at this time. X-ray of the left foot was performed which revealed soft tissue swelling without signs of osteomyelitis at this time. Wound culture was obtained he will be admitted for cellulitis of the left lower extremity/left great toe. Allergies No Known Allergies Allergy (Verified 04/14/19 22:16) Home Medications: Insulin Aspart (Niacinamide) [Fiasp 100 Unit/ml Flextouch] 8 units SQ TID 04/14/19 Levothyroxine [Synthroid*] 50 mcg PO [id number] 04/14/19 lisinopriL [Lisinopril] 1 tab PO DAILY 04/14/19 Amlodipine [Norvasc*] 10 mg PO DAILY #30 tab 04/20/19 Atorvastatin Calcium 20 mg PO DAILY 04/26/19 Furosemide [Lasix] 40 mg PO DAILY #30 tab 09/29/20 Polyethylene Glycol 3350 [Miralax] 17 gm PO DAILY #15 powd.pack 09/29/20 Sennosides [Senna] 17.2 mg PO BID #120 tablet 09/29/20 levoFLOXacin [Levaquin] 750 mg PO DAILY #7 tab 09/29/20 - Past Medical/Surgical History Diabetic: Yes -: DM type 2 -: Hypertension -: Hypothyroidism -: HLD -: Joint Replacement L knee Psychosocial/ Personal History: Is retired, lives at home with - Family History Father -: Diabetes Mother -: Cancer Notes: colon Brother -: Diabetes Sister -: Diabetes - Social History Smoking Status: Never smoker Alcohol use: Yes CD- Drugs: No Caffeine use: Yes Place of Residence: Home Review of Systems 10-point ROS is otherwise unremarkable Integumentary: Rash, Other (Redness, swelling LLE.), As per HPI Physical Examination - Physical Exam General: Alert, In no apparent distress, Oriented x3 HEENT: Atraumatic, PERRLA, Mucous membr. moist/pink, EOMI, Sclerae nonicteric Neck: Supple, 2+ carotid pulse no bruit, No LAD, Without JVD or thyroid abnormality Respiratory: Clear to auscultation bilaterally, Normal air movement Cardiovascular: Regular rate/rhythm, Normal S1 S2 Capillary refill: <2 Seconds Gastrointestinal: Normal bowel sounds, No tenderness Musculoskeletal: No tenderness Integumentary: Tenderness/swelling, Erythema, Warmth, Diabetic ulcer (Left great toe, medial aspect) Neurological: Normal gait, Normal speech, Normal strength at 5/5 x4 extr, Normal tone, Normal affect - Studies Laboratory Data (last 24 hrs) 09/04/22 17:38: WBC 8.40, Hgb 13.4 L, Hct 40.4, Plt Count 293 09/04/22 16:43: APTT 29.5 09/04/22 16:43: Sodium 140, Potassium 4.0, BUN 23 H, Creatinine 1.03, Glucose 97, Total Bilirubin 0.5, AST 14 L, ALT 27, Alkaline Phosphatase 71 Assessment and Plan - Plan Assessment: Cellulitis left lower extremity with diabetic ulceration medial aspect left great toe Diabetes mellitus type 2insulin-dependent Hypertension Hyperlipidemia Hypothyroidism Plan: Cellulitis left lower extremity with diabetic ulceration medial aspect left great toe Wound culture, blood cultures obtained. Continue broad-spectrum antibiotics vancomycin/cefepime. X-ray reveals soft tissue swelling without suspected osteomyelitis at this time. He just noticed his symptoms today, may benefit with MRI possibly tomorrow. No SIRS criteria present currently. Wound healing consulted. Diabetes mellitus type 2insulin-dependent ACHS Accu-Chek, sliding scale insulin. Takes 38 units of Semglee at home daily in the morning. Continue reduced dose long-acting insulin. Hypertension Hyperlipidemia Hypothyroidism Continue home medications. DVT PPX:Lovenox Code status:Full code Discharge Plan: Home Plan to discharge in: 72 Hours - Advance Directives Does patient have a Living Will: No Does patient have a Durable POA for Healthcare: No - Code Status/Comfort Care Code Status Assessed: Yes (Full code) Critical Care: No Time Spent Managing Pts Care (In Minutes): 55
[2022-09-04] MEDS ORDERED: HYDROCODONE/APAP 7.5/325 MG TAB PO PRN (20:12)
[2022-09-04] MEDS ORDERED: VANCOMYCIN 1 GM in NA CHLORIDE 0.9% 250 ML IVPB SCH (20:12)
[2022-09-04] MEDS ORDERED: ONDANSETRON 4 MG/2 ML VIAL IV PRN (20:12)
[2022-09-04 20:17] VITALS: O2SAT 98
[2022-09-04] MEDS: INSULIN -REGULAR HUMAN 50 UNIT/0.5 ML ML SQ SCH (21:00)
[2022-09-04 21:26] VITALS: BMI 39.7
[2022-09-04] MEDS ORDERED: GABAPENTIN 100 MG CAP PO PRN (22:37)
[2022-09-04] MEDS ORDERED: VANCOMYCIN 500 MG in NA CHLORIDE 0.9% 100 ML IVPB ONE (23:00)
[2022-09-05 04:17] LABS: Absolute Lymphocytes (CBC) 1.8 K/uL (0.7-4.9); Hematocrit 37.3 % (39.6-49.0); Lymphocytes % 20.9 % (15.3-44.8); MCV 88.1 fL (80-100); MPV 7.8 fL (7.6-11.3); RBC Red Blood Cell Count 4.23 M/uL (4.33-5.43)
[2022-09-05 04:34] LABS: Potassium 3.8 mEq/L (3.5-5.1)
[2022-09-05] MEDS ORDERED: CEFEPIME 1 GM in NA CHLORIDE 0.9% 100 ML IV SCH (05:00)
[2022-09-05] MEDS ORDERED: LEVOTHYROXINE SOD 0.05 MG TABLET PO SCH (06:00)
[2022-09-05] MEDS: INSULIN -REGULAR HUMAN 50 UNIT/0.5 ML ML SQ SCH ×3 (07:30→16:29)
[2022-09-05] MEDS ORDERED: METFORMIN HCL 500 MG TAB PO SCH (08:00)
[2022-09-05] MEDS ORDERED: ENOXAPARIN 40 MG/0.4 ML SQ SCH (09:00)
[2022-09-05] MEDS ORDERED: LOSARTAN/HCTZ 50-12.5 PO SCH (09:00)
[2022-09-05] MEDS ORDERED: ATORVASTATIN 20 MG TAB PO SCH (09:00)
[2022-09-05] MEDS ORDERED: INSULIN GLARGINE 100 UNIT/ML SQ SCH (09:00)
[2022-09-05] MEDS ORDERED: VANCOMYCIN 2 GM in NA CHLORIDE 0.9% 500 ML IVPB SCH ×2 (09:00→11:00)
--- NOTE | 2022-09-05 10:01 | P.CNS ---
Date of Consult: 09/05/22 Reason for Consult: Cellulitius LLE Chief Complaint: Cellulitis LLE History of Present Illness: 66-year-old male with history of insulin-dependent diabetes, hypertension, hypothyroidism, hyperlipidemia presents emergency department chief complaint of redness and swelling of left great toe. He reports he noticed the inflammation/swelling today, also noticed an ulceration to the medial aspect of his left great toe. He has had previous osteomyelitis of his right foot. He was evaluated in the emergency department blood cultures were obtained, white blood cell count within normal limits at this time. X-ray of the left foot was performed which revealed soft tissue swelling without signs of osteomyelitis at this time. Wound culture was obtained he will be admitted for cellulitis of the left lower extremity/left great toe. Allergies No Known Allergies Allergy (Verified 04/14/19 22:16) Home medications list reviewed: Yes Home Medications: Levothyroxine [Synthroid*] 50 mcg PO [id number] 04/14/19 Atorvastatin Calcium 40 mg PO DAILY 04/26/19 Gabapentin 100 mg PO BID 09/04/22 Insulin Aspart [Novolog Flexpen] See Rx Instructions .ROUTE .COMPLEX 09/04/22 Insulin Glargine/Lixisenatide [Soliqua 100 Unit-33 Mcg/ml Pen] 38 units SQ DAILY 09/04/22 Metformin HCl 1,000 mg PO DAILY 09/04/22 Losartan Potassium 100 mg PO DAILY #30 tab 09/05/22 Sulfamethoxazole/Trimethoprim [Sulfamethoxazole-Tmp Ds Tablet] 1 tab PO BID 14 Days #28 tab 09/05/22 - Past Medical/Surgical History Diabetic: Yes -: DM type 2 -: Hypertension -: Hypothyroidism -: HLD -: Joint Replacement L knee Psychosocial/ Personal History: Is retired, lives at home with - Family History Father Medical History: Diabetes Mother Medical History: Cancer Notes: colon Brother Medical History: Diabetes Sister Medical History: Diabetes - Social History Alcohol use: No CD- Drugs: No Caffeine use: Yes Place of Residence: Home Physical Examination Temp Pulse Resp BP Pulse Ox 97.7 F 74 16 134/80 96 09/05/22 08:00 09/05/22 09:11 09/05/22 08:00 09/05/22 09:11 09/05/22 08:00 General: Alert, In no apparent distress, Oriented x3 HEENT: Atraumatic, Normocephalic, PERRLA Neck: Supple, JVD not distended Respiratory: Clear to auscultation bilaterally, Normal air movement Cardiovascular: No edema, Normal pulses Gastrointestinal: Normal bowel sounds, Soft and benign Musculoskeletal: No clubbing Integumentary: Erythema (left foot first toe), Diabetic ulcer (left foot 1st toe) Neurological: Normal gait, Normal speech, Normal tone, Normal affect Laboratory Data - Reviewed Imagings Data: - Reviewed Conclusions/Impression: Problem List Diabetes Mellitus Type II Hypertension Hypothyroidism Hyperlipidemia Hx Osteomyelitis Cellulitis Left great toe Cellulitis - Erythema, edema and warmth of left great toe with diabetic ulcer noted. - MRI without evidence of osteomyelitis - Currently on Cefepime and Vancomycin - Wound culture pending Recommendations - Start on Bactrim DS x 14 days - Discontinue IV antibiotics - [place] left first toe diabetic ulcer with betadine and cover with gauze - Keep left leg elevated ID will follow up as needed. Case discussed with Cole Carmichael
--- NOTE | 2022-09-05 13:00 | RAD REPORT ---
EXAM DESCRIPTION: MRI - Foot Left Wo Cont - 09/05/2022 11:58 am CLINICAL HISTORY: eval for osteo COMPARISON: Foot Left 3 View dated 09/04/2022 TECHNIQUE: Multiplanar multisequence MRI of the left foot, obtained without IV contrast. FINDINGS: Small wound with skin irregularity along the medial aspect of the big toe at the level of the distal phalanx. Minimal obliteration of the underlying subcutaneous fat. Moderate soft tissue kevon ma along the dorsal aspect of the foot, most pronounced laterally. No appreciable fluid collection. No suspicious marrow signal abnormality or findings to suggest osteomyelitis. Trace effusion along the fourth digit tarsometatarsal articulation. Mild atrophy and fatty infiltration of the deep muscles of the foot. Major tendinous structures are unremarkable. IMPRESSION: No evidence of acute osteomyelitis. Soft tissue abnormalities as above. No appreciable fluid collections. Trace effusion along the fourth digit tarsometatarsal articulation.
--- NOTE | 2022-09-05 15:33 | P.DS ---
Admission Date: 09/04/22 Discharge Date: 09/05/22 Disposition: ROUTINE DISCHARGE Discharge Condition: GOOD Reason for Admission: Cellulitis LLE Consultations: 1. Infectious Diseases Hospital Course: DIAGNOSES: # Left Great Toe Cellulitis with Medial Toe Blister # Type II Diabetes Mellitus complicated by Diabetic Neuropathy # Hypertenion # Hyperlipidemia # Hypothyroidism DIAGNOSES: Mr. Vance Alfaro is a pleasant 66 year old male with a past medical history significant for type 2 diabetes mellitus, hypertension, hyperlipidemia, and hypothyroidism who was admitted to the [facility] on 09/04/2022 for left great toe cellulitis. He was admitted to the Medicine service. Upon further evaluation, a left foot x- ray revealed, "soft tissue swelling is seen affecting the great toe. No finding to suspect osteomyelitis. No fracture seen. Small calcaneal spurs." He was started on IV antibiotics and Infectious Diseases was consulted. An MRI of the left foot revealed, "no evidence of acute osteomyelitis. Soft tissue abnormalities as above. No appreciable fluid collections. Trace effusion along the fourth digit tarsometatarsal articulation." He was evaluated by Dr. Alexandre. He cleared him for discharge with 14 days of sulfamethoxazole-trimethoprim. Mr. Alfaro states that he has taken this medication in the past, without any side ef fects. He was counseled on the importance of wound care and outpatient follow- up. He stated that he will follow-up with Dr. Jean-Baptiste early next week. Of note, on the differential diagnoses was an acute gout flare. However, he did not report any pain. His uric acid was 5.6. Given his lack of symptoms and the fact that he is about to start sulfamethoxazole-trimethoprim, have opted not to treat with NSAIDs or colchicine. To limit his risk for hyperuricemia, his losartan-hydrochlorothiazide was switched to losartan only. On 09/05/2022, he was seen on rounds and deemed medically stable for discharge. He was discharged with instructions to schedule follow-up appointments with his PCP (Dr. Jean-Baptiste). He was provided prescriptions for losartan and sulfamethoxazole-trimethoprim. He and his were given the opportunity to ask questions and reported no further questions. Furthermore, all questions were answered to the best of my ability. A copy of this discharge summary will be sent to the above providers to facilitate continuity of care. Today, I personally spent 25 minutes on his case, of which greater than 50% of the time was spent in patient education, counseling, and coordination of care as described above. Vital Signs/Physical Exam: Temp Pulse Resp BP Pulse Ox 97.7 F 74 16 134/80 96 09/05/22 08:00 09/05/22 09:11 09/05/22 08:00 09/05/22 09:11 09/05/22 08:00 General: Alert, In no apparent distress, Oriented x3 HEENT: Atraumatic, Sclerae nonicteric Neck: JVD not distended Respiratory: Clear to auscultation bilaterally, Normal air movement Cardiovascular: No edema, Regular rate/rhythm, Normal S1 S2, No gallops, No rubs, No murmurs Gastrointestinal: Normal bowel sounds, Soft and benign, Non-distended, No tenderness, No rebound, No guarding Musculoskeletal: No clubbing Integumentary: Other (erythema and warmth of left great toe. Denies tenderness. There is a small blister on the medial aspect of the left great toe.) Neurological: Normal speech, Normal affect Laboratory Data at Discharge: WBC 8.40 thou/uL (4.3-10.9) 09/05/22 04:02 Hgb 12.5 g/dL (13.6-17.9) L 09/05/22 04:02 Hct 37.3 % (39.6-49.0) L 09/05/22 04:02 Plt Count 240 thou/uL (152-406) 09/05/22 04:02 APTT 29.5 SECONDS (24.3-36.9) 09/04/22 16:43 Sodium 137 mEq/L (136-145) 09/05/22 04:02 Potassium 3.8 mEq/L (3.5-5.1) 09/05/22 04:02 BUN 24 mg/dL (7-18) H 09/05/22 04:02 Creatinine 0.93 mg/dL (0.70-1.30) 09/05/22 04:02 Glucose 109 mg/dL (74-106) H 09/05/22 04:02 Uric Acid 5.8 mg/dL (3.5-7.2) 09/05/22 04:02 Total Bilirubin 0.5 mg/dL (0.2-1.0) 09/04/22 16:43 AST 14 U/L (15-37) L 09/04/22 16:43 ALT 27 U/L (16-61) 09/04/22 16:43 Alkaline Phosphatase 71 U/L (45-117) 09/04/22 16:43 Home Medications: Levothyroxine [Synthroid*] 50 mcg PO [id number] 04/14/19 Atorvastatin Calcium 40 mg PO DAILY 04/26/19 Gabapentin 100 mg PO BID 09/04/22 Insulin Aspart [Novolog Flexpen] See Rx Instructions .ROUTE .COMPLEX 09/04/22 Insulin Glargine/Lixisenatide [Soliqua 100 Unit-33 Mcg/ml Pen] 38 units SQ DAILY 09/04/22 Metformin HCl 1,000 mg PO DAILY 09/04/22 Losartan Potassium 100 mg PO DAILY #30 tab 09/05/22 Sulfamethoxazole/Trimethoprim [Sulfamethoxazole-Tmp Ds Tablet] 1 tab PO BID 14 Days #28 tab 09/05/22 New Medications: Losartan Potassium 100 mg PO DAILY #30 tab Sulfamethoxazole/Trimethoprim [Sulfamethoxazole-Tmp Ds Tablet] 1 tab PO BID 14 Days #28 tab Physician Discharge Instructions: 1. Please call and schedule a follow-up appointment with your PCP (Dr. Jean-Baptiste) in 3-5 days - Your blood work revealed mild anemia. Please review with your PCP for further evaluation. - If you develop fevers, chills, worsening redness/swelling, or any symptoms you find concerning, please return to the Emergency Department for further evaluation - If you have any questions regarding your hospital stay, please call [phone] Diet: AHA Activity: Ad candace Followup: Chandra Jean-Baptiste MD [Primary Care Provider] - 2-3 Days (Call for appointment.) Time spent managing pt's care (in minutes): 25
[2022-09-05 16:22] VITALS: BP 164/82; TEMP 98
--- NOTE | 2022-09-05 16:30 | EKG ---
Test Date: 2022-09-04 Test Time: 17:24:58 [employer]room Farmer: RENATA MEASUREMENT RESULTS: Intervals: Rate: 87 CO: 126 QRSD: 90 QT: 372 QTc: 447 [place]: P: -8 CO: 126 QRS: 55 T: 54 INTERPRETIVE STATEMENTS: Normal sinus rhythm Normal ECG Compared to ECG 04/14/2019 10:19:08 No significant changes Electronically Signed On 09-05-22 16:27:44 CDT by Claude Martinez
== END 2022-09-05 16:50 | disposition home health service (06) ==
LOC: ER 16:25 → ERHOLD 18:18 → INTOOBSV 18:18 → 4TH 19:36
PROVIDERS: ADMIT Internal Medicine; ATTEND Internal Medicine
DX: L03.116 Cellulitis of left lower limb (principal); E11.21 Type 2 diabetes mellitus with diabetic nephropathy; I10 Essential (primary) hypertension; E78.5 Hyperlipidemia, unspecified; E03.9 Hypothyroidism, unspecified; E11.621 Type 2 diabetes mellitus with foot ulcer; L97.529 Non-pressure chronic ulcer of other part of left foot with unspecified severity; Z79.4 Long term (current) use of insulin
CPT/HCPCS: 93005; 87040 ×2; 87070; 85025 ×2; 80048; 36415; 87205; 82947; 84550; 85730; 83036; 80053; 73630; 73718; 96375; 96374; 99285; J1815; J2543; J1650; J7040 ×2; J0692; 87077; 87186; G0378